=== PATIENT | male | born 1940 | race Caucasian/White ===

== ENCOUNTER 2019-03-14 23:52 | Inpatient (IN) ==
[2019-03-15] MEDS ORDERED: ASPIRIN PO ONE (00:01)
[2019-03-15] MEDS ORDERED: ASPIRIN PR ONE (00:01)
[2019-03-15 00:28] LABS: INR 0.96; PROTIME 13.3 Seconds (11.0-16.0)
[2019-03-15 00:29] LABS: BASO# 0.04 X1000 (0.0-0.2); BASO% 0.6 % (0.0-0.8); EOS# 0.08 X1000 (0.0-0.7); EOS% 1.3 % (0.0-10.0); HEMATOCRIT 30.8 % (42.0-52.0); HEMOGLOBIN 10.4 g/dL (14.0-18.0); IMM GRAN# 0.26 X1000 (0.0-0.04); IMM GRAN% 4.1 % (0.0-0.5); LYMPH# 2.29 X1000 (1.2-3.4); LYMPH% 36.1 % (20.5-51.1); MCH 34.2 PG (27-31); MCHC 33.8 g/dL (33-37); MCV 101.3 FL (81-99); MONO# 0.69 X1000 (0.11-0.59); MONO% 10.9 % (1.7-9.3); MPV 9.6 FL (7.4-10.4); NEUT# 2.98 X1000 (1.4-6.5); PLT 192 X1000 (130-400); PTT 26.9 Seconds (22.3-41.8); RBC 3.04 XMIL (4.7-6.1); WBC 6.34 X1000 (4.8-10.8)
[2019-03-15 00:38] LABS: CALCIUM 8.6 mg/dL (8.8-10.2); CREATININE 2.2 mg/dL (0.7-1.2); POTASSIUM 4.8 mmol/L (3.5-5.1); TOTAL BILIRUBIN 0.2 mg/dL (0.20-1.00)
[2019-03-15] MEDS ORDERED: MORPHINE IV ONE (02:42)
--- NOTE | 2019-03-15 03:35 | PROVIDER DOCUMENTATION ---
This chart was entered by Carlita Valdez Scribe, acting as scribe for Pasha Maldonado MD. HPI-Chest Pain - General Chief Complaint: Chest Pain Stated Complaint: CHEST PAIN Time Seen by Provider: 03/15/19 00:10 Source: patient Allergies/Adverse Reactions: Patient Allergies Allergy/AdvReac Type Severity Reaction Status Date / Time No Known Allergies Allergy Verified 03/14/19 23:59 Home Medications: Home Medication List Medication Instructions Recorded Confirmed Last Taken Type Fluticasone/Salmeterol [Advair 1 each IH BID #1 disk.w.dev 12/13/16 01/14/19 01/13/19 21:00 Rx 250-50 Diskus] Glimepiride 1 mg PO DAILY #30 tablet 12/13/16 01/14/19 01/13/19 08:00 Rx Cholecalciferol (Vit D3) [Vitamin 1,000 units PO DAILY 09/01/18 01/14/19 08:00 History D3] Finasteride 5 mg PO DAILY 09/01/18 01/14/19 01/14/19 08:00 History Tamsulosin HCl 0.4 mg PO BID 09/01/18 01/14/19 01/14/19 08:00 History Ipratropium/Albuterol Sulfate 1 puff IH 4XDAY 11/27/18 01/14/19 01/13/19 21:00 History [Combivent Respimat 20-100 Mcg] Sodium Bicarbonate 650 mg PO TID 11/27/18 01/14/19 01/13/19 21:00 History Allopurinol 100 mg PO DAILY 12/25/18 01/14/19 01/13/19 08:00 History Docusate Sodium [Stool Softener] 100 mg PO PRN PRN 01/12/19 01/14/19 01/13/19 08:00 History Folic Acid/Vit B Complex and C 400 mcg PO DAILY 01/12/19 01/14/19 01/13/19 08:00 History [Super B Complex Tablet] Metoclopramide [Reglan] 10 mg PO PRN PRN 01/12/19 01/12/19 Unknown History Multivit-Min/FA/Lycopen/Lutein 1 each PO DAILY 01/12/19 01/14/19 01/13/19 08:00 History [Centrum Silver Tablet] Ondansetron [Zofran] 4 mg PO PRN PRN 01/12/19 01/12/19 Unknown History Promethazine [Phenergan] 25 mg PO PRN PRN 01/12/19 01/12/19 Unknown History Zinc Sulfate 220 mg PO BID 01/12/19 01/14/19 01/13/19 21:00 History [place]/Na Phos/Meth Blue/Hyos 1 each PO Q6HR PRN #15 tablet 01/14/19 Unknown Rx [Urogesic-Blue] - History of Present Illness-CP Nature of Presenting Problem: pt is a 78 yr old male presenting with chest tightness and shortness of breath onset 2299, pt currently treated for lung CA, hx of collapsed lung. pt reports diaphoresis, no nausea or vomiting. Location: reports: central Chest Pain Radiation: reports: no radiation Quality of Pain: reports: tightness Severity in ED: severe Onset/Duration: abrupt (2329) Timing: still present Context/Activities at Onset: reports: rest Modifying Factors: improves with: nothing Associated Symptoms: reports: diaphoresis, shortness of breath. denies: nausea Nitro Today/Relief: 0.4 mg x 1, provided by EMS, no relief Aspirin Treatment Today: 81 mg x 4, provided by EMS Similar Symptoms Previously?: No Recently Seen Here or By Another Healthcare Provider: Yes (currently followed by Dr Mcnamara) Review of Systems - Adult - REVIEW OF SYSTEMS - ADULT Constitutional: denies: fever, fatique Eyes: denies: blurred vision, double vision Ears, Nose, Mouth & Throat: denies: ear pain, sinus problem, throat pain Cardiovascular: reports: chest pain. denies: palpitations, syncope Respiratory: reports: shortness of breath. denies: cough Gastrointestinal: denies: nausea, vomiting Genitourinary: reports: no symptoms reported Musculoskeletal: denies: back pain, neck pain Integumentary: reports: no symptoms reported Neurological: denies: dizziness/vertigo, headache/migraines Psychiatric: reports: no symptoms reported Endocrine: reports: excessive sweating Hematologic/Lymphatic: reports: no symptoms reported Allergic/Immunologic: reports: no symptoms reported All Other Systems: Reviewed and Negative Past History - Adult - PAST MEDICAL HISTORY-ADULT Review of Records: reports: Old Records Reviewed, Nursing Assessment Review, Medications Reviewed, Social history reviewed & non-contributory. Major Childhood Illnesses: reports: denies history Cardiovascular: reports: HTN, other (bypass) Respiratory: reports: COPD, cancer (right lung) Gastrointestinal: reports: denies history Obstetrical/Gynecological: reports: denies history Genitourinary: reports: denies history Musculoskeletal: reports: denies history Neurological: reports: denies history Endocrine/Immune: reports: Diabetes Other Conditions: reports: denies history - PRIOR SURGERIES/PROCEDURES Surgical/Procedure History: reports: CABG, hernia repair - IMMUNIZATION STATUS Childhood Immunizations: See Nurse Assessment Flu Vaccine: See Nurse Assessment - FAMILY HISTORY Family History: reviewed, not pertinent - SOCIAL HISTORY Smoking: denies Substance Use: denies Living Situation: family Physical Exam-General - PHYSICAL EXAM-ADULT Initial Vital Signs Reviewed: Yes - CONSTITUTIONAL General Appearance: alert, mild distress, obese - EYES Eyes: PERRL/EOMI - HEAD, EARS, NOSE, MOUTH & THROAT HENMT: normocephalic/atraumatic, moist mucous membranes - NECK Neck: non-tender, full range of motion, supple, normal inspection - RESPIRATORY Respiratory: chest non-tender, lungs clear, decreased breath sounds (right) - CARDIOVASCULAR Cardiovascular: normal peripheral pulses, tachycardia - GASTROINTESTINAL (ABDOMEN) Abdominal Exam: normal bowel sounds, non tender, soft - LYMPHATIC Lymphatic: no adenopathy - MUSCULOSKELETAL Back Exam: normal inspection Extremity: normal range of motion, non-tender, normal inspection - SKIN Integumentary: normal color, normal turgor, diaphoresis - PSYCHIATRIC Psych/Mental Status: normal mood/affect - HEART Score HEART Score: History: Moderately Suspicious HEART Score: ECG: Non-Specific Repolarization Disturbance/LBBB/PM HEART Score: Age: > or = 65 Years HEART Score: Risk Factors for Atherosclerotic Disease: > or = 3 Risk Factors or History of Atherosclerotic Disease HEART Score: Troponin: < or = Normal Limit Total HEART Score:: 6 Progress - PLAN OF CARE/RESULTS Progress/Plan/Lab Results: Vital Signs - 8 hr 03/14/19 23:54 Temperature 98.2 F Pulse Rate 128 H Respiratory Rate 24 Blood Pressure 118/85 O2 Sat by Pulse Oximetry 85 L Laboratory Results - last 24 hr 03/15/19 03/15/19 03/15/19 00:02 00:02 00:02 WBC 6.34 RBC 3.04 L Hgb 10.4 L Hct 30.8 L MCV 101.3 H MCH 34.2 H MCHC 33.8 RDW Std Deviation 18.0 H Plt Count 192 MPV 9.6 Immature Gran % (Auto) 4.1 H Neut % (Auto) 47.0 Lymph % (Auto) 36.1 [place] % (Auto) 10.9 H Eos % (Auto) 1.3 Baso % (Auto) 0.6 Immature Gran # (Auto) 0.26 H Neut # (Auto) 2.98 Lymph # (Auto) 2.29 [place] # (Auto) 0.69 H Eos # (Auto) 0.08 Baso # (Auto) 0.04 PT INR PTT (Actin FS) Sodium 141 Potassium 4.8 Chloride 106 Carbon Dioxide 21 L Anion Gap 14 BUN 47 H Creatinine 2.2 H Estimated GFR/1.73 m2 29 BUN/Creatinine Ratio 21 Glucose 201 H Calculated Osmolality 299 Calcium 8.6 L Total Bilirubin 0.20 AST 21 ALT 40 Alkaline Phosphatase 197 H Creatine Kinase 47 Troponin T Wsd-T-Kdeuymeymcg Pept 317 Total Protein 7.0 Albumin 4.0 Globulin 3.0 Albumin/Globulin Ratio 1.0 03/15/19 03/15/19 00:02 00:02 WBC RBC Hgb Hct MCV MCH MCHC RDW Std Deviation Plt Count MPV Immature Gran % (Auto) Neut % (Auto) Lymph % (Auto) [place] % (Auto) Eos % (Auto) Baso % (Auto) Immature Gran # (Auto) Neut # (Auto) Lymph # (Auto) [place] # (Auto) Eos # (Auto) Baso # (Auto) PT 13.3 INR 0.96 PTT (Actin FS) 26.9 Sodium Potassium Chloride Carbon Dioxide Anion Gap BUN Creatinine Estimated GFR/1.73 m2 BUN/Creatinine Ratio Glucose Calculated Osmolality Calcium Total Bilirubin AST ALT Alkaline Phosphatase Creatine Kinase Troponin T < 0.010 Qpm-S-Judkhadlpmy Pept Total Protein Albumin Globulin Albumin/Globulin Ratio Orders Category Date Time Status Cardiac Monitoring DIRECTED Care 03/15/19 00:01 Active Oxygen Therapy- ED Nursing DIRECTED Care 03/15/19 00:01 Active Saline Loc NOW Care 03/15/19 00:01 Active CHEST-1 VIEW [RAD] Stat Exams 03/15/19 00:18 Taken CHEST-1 VIEW [RAD] Stat Exams 03/15/19 01:30 Taken CBC WITH ELECTRONIC DIFF [HEME] Stat Lab 03/15/19 00:02 Completed CK PROFILE [SP CHEM] Stat Lab 03/15/19 00:02 Completed COMPREHENSIVE METABOLIC PANEL [CHEM] Stat Lab 03/15/19 00:02 Completed PRO B-NATRIURETIC PEPTIDE Stat Lab 03/15/19 00:02 Completed PROTIME WITH INR [COAG] Stat Lab 03/15/19 00:02 Completed PTT [COAG] Stat Lab 03/15/19 00:02 Completed TROPONIN T Stat Lab 03/15/19 00:02 Completed Aspirin Med 03/15/19 00:01 Discontinued 300 mg KS NOW ONE Aspirin Med 03/15/19 00:01 Discontinued 325 mg PO NOW ONE Morphine Med 03/15/19 02:42 Discontinued 4 mg IV NOW ONE CP/SOB/Palp >45 yrs of Age Stat Oth 03/15/19 00:01 Ordered EKG [EKG] Stat Ther 03/15/19 00:01 Ordered Result Diagrams: 03/15/19 00:02 03/15/19 00:02 - REASSESSMENT Reassessment #1 Time Reassessed: 01:44 (no longer SOB) Status: improving - EKG 1 Time of EKG reading by physician:: 23:57 EKG Read and Signed by:: Pasha Maldonado EKG Interpretation (*Must complete 3 of following elements*): Abnormal (non specific st abnormality) Rate: 128 Rhythm: sinus tachycardia [place]: normal [place] Interval: normal - XRAY 2 XRAY Study: Chest Impression: Abnormal (pneumothorax resolved), See EMR Report - CONSULTS/PCP/HOSPITALIST Notification #1 *Consult/PCP/Hospitalist*: [place] Time Discussed: 03:18 Consult Disposition: Admit Departure - Departure Date of Disposition Decision: 03/15/19 Time of Disposition Decision: 00:30 DIAGNOSIS: Pneumothorax, right Lung cancer Qualifiers: Laterality: unspecified laterality Lung location: unspecified part of lung Qualified Code(s): C34.90 - Malignant neoplasm of unspecified part of unspecified bronchus or lung Disposition: ADMITTED INPATIENT 09 Certified Medical Emergency: Emergent Condition: Good Referrals and Follow-Ups: None,PCP [Primary Care Provider] - - Critical Care Note This patient required my direct & personal management of CC.: No Attestation - Physician/ THAI Attestation Patient care was provided by Advanced Practice Provider:: No The physician spent face to face time with patient:: Yes Advanced Practice Provider documentation review:: Supervising physician onsite and consulted in the evaluation and care of this patient. The physician did have a face to face encounter with the patient. This chart was documented by the indicated scribe, (Carlita Valdez, Rambo) and accurately reflects the services I performed and decisions made by me, Pasha Maldonado MD, as attested by the provider's signature.
[2019-03-15] MEDS ORDERED: NS 1,000 ML IV ONE (06:16)
[2019-03-15] MEDS ORDERED: ZOFRAN IV PRN (06:16)
--- NOTE | 2019-03-15 06:41 | Diag Imaging Result Doc PS360 ---
EXAM: CHEST-1 VIEW HISTORY: cp TECHNIQUE: Chest single view COMPARISON: 12/26/2018 and a follow-up film at 1:40 AM FINDINGS: There is a large right-sided pneumothorax. There is partial collapse of the right lung. Sternal wires are present and there is a left-sided pacemaker. No cardiomegaly. No pleural effusions. There are increased interstitial markings believed to be fibrosis. No change in the right jugular portacatheter. IMPRESSION: Right-sided pneumothorax. This was noted and a right-sided chest tube was placed on the follow-up film at 1:40 AM. Electronically signed by Gallieo Jackson 03/15/2019 6:39 AM
--- NOTE | 2019-03-15 06:44 | EKG Report ---
Test Performed on : 03/14/2019 11:57:49 PM Test Reason : CP Blood Pressure : / mmHG Vent. Rate : 128 BPM Atrial Rate : 128 BPM P-R Int : 144 ms QRS Dur : 086 ms QT Int : 312 ms P-R-T Axes : 086 -04 031 degrees QTc Int : 455 ms Sinus tachycardia. Nonspecific ST abnormality Abnormal ECG When compared with ECG of 03-SEP-2018 07:33, Vent. rate has increased BY 69 BPM Criteria for Septal infarct are no longer present Confirmed by Puja DILLON, Jr ([id number]), editorial assistant Flores Olivas ([id number]) on 03/20/2019 1:54:52 PM
--- NOTE | 2019-03-15 07:04 | Diag Imaging Result Doc PS360 ---
EXAM: CHEST-1 VIEW HISTORY: chest tube placement TECHNIQUE: Portable chest single view at 1:40 AM COMPARISON: 12:25 AM FINDINGS: Interval placement of a right-sided chest tube. There is reexpansion of the right lung. There is only a tiny apical pneumothorax seen on the current study. Increased interstitial markings throughout the lungs likely due to fibrosis. Sternal wires and surgical clips and a left-sided pacemaker. No change in the right jugular line. IMPRESSION: Interval placement of a right-sided chest tube with reexpansion of the right lung. Electronically signed by Galileo Jackson 03/15/2019 7:02 AM
[2019-03-15] MEDS: MORPHINE IV PRN ×2 (08:49→20:13)
[2019-03-15] MEDS ORDERED: SODIUM CHLORIDE 0.9% INJ PRN (09:01)
[2019-03-15] MEDS ORDERED: TYLENOL PO PRN (09:01)
[2019-03-15 09:39] LABS: ALLEN TEST YES; BE -3.8 mmoll (-3.0-3.0); BLOOD TYPE ARTERIAL; O2(CT) 12.9 mL/dL (15.0-23.0); PCO2(98.6) 33 mmHg (35-45); PO2(98.6) 129 mmHg (60-100); SAMPLE BLOOD; SAO2 99.3 % (95.0-100.0); THB 9.3 g/dL (11.5-17.4)
[2019-03-15 09:42] LABS: MODALITY CANNULA
[2019-03-15] MEDS: HUMULIN R SUBQ SCH ×3 (12:10→20:13)
[2019-03-15] MEDS: XOPENEX NEB INH SCH ×4 (12:26→23:37)
[2019-03-15] MEDS: ATROVENT NEB INH SCH ×4 (12:26→23:37)
--- NOTE | 2019-03-15 13:28 | GENERAL SURGERY CONSULTATION ---
DATE: 03/15/2019 HISTORY OF PRESENT ILLNESS: This is a 78-year-old gentleman who is undergoing radiation and chemotherapy for a lung carcinoma. He has had a history of spontaneous pneumothorax which prompted his diagnosis. He was treated with a chest tube. He presented which dyspnea, chest pain. Came to the ER, where his chest x-ray showed right-sided pneumothorax. Chest tube was placed by Dr. Maldonado in the emergency department with near complete resolution of the pneumothorax. He is comfortable now on nasal cannula, in no acute distress. MEDICAL HISTORY: 1. Lung cancer. 2. COPD with a history of tobacco use. 3. Chronic kidney disease. 4. Diabetes. 5. Coronary artery disease. SURGICAL HISTORY: He has had a port and a right chest tube placed by Dr. Queen. SOCIAL HISTORY: History of tobacco, no current use. No alcohol. He is here with his and his daughter. FAMILY HISTORY: Reviewed and noncontributory. REVIEW OF SYSTEMS: Ten points negative. PHYSICAL EXAMINATION: Vital signs: Pulse is 75, temperature is 97.8 degrees, blood pressure 135/66, oxygen saturation 100% on 5 L nasal cannula. General: He is alert, eating his lunch, in no acute distress. HEENT: There is no scleral icterus. Neck: No cervical mass. Cardiovascular: Normal rate. Pulmonary: No increased work of breathing. He has a right chest tube to -20 suction, FEV1 or 2 air leak with minimal output. Dressing is clear. Integument: Warm and dry. Psychiatric: Appropriate affect. Neurologic: No gross deficits. Musculoskeletal: No significant atrophy or cachexia. Peripheral vascular: lower extremity edema. DIAGNOSTIC STUDIES: White count 6, hematocrit 30. INR 0.96. I reviewed his ABG. Creatinine is 2.2, glucose 190s to 200s. Troponins are negative. LFTs normal with exception of elevation of his alkaline phosphatase. I have looked at his pre- and post-chest tube chest x-rays. ASSESSMENT AND PLAN: A 78-year-old gentleman with a spontaneous pneumothorax. Suspect this is related to a ruptured bleb. We will continue chest tube management for now and determine resolution of his air leak course over the next couple days. I discussed this plan with the patient and family. cc: Diana Hardy MD [facility]
--- NOTE | 2019-03-15 14:13 | HISTORY AND PHYSICAL ---
PRIMARY CARE PHYSICIAN: I do not think he has a primary care physician. HISTORY OF PRESENT ILLNESS: This is a 78-year-old who is undergoing radiation treatment and chemotherapy for lung cancer. He has a history of spontaneous pneumothorax which he started having some chest tightness and discomfort a couple days ago, and chest tube was placed. Presented with dyspnea and chest pain. X-ray showed right-sided pneumothorax. Chest tube placed by Dr. Maldonado in the emergency department with near complete resolution. He is on nasal cannula. PAST MEDICAL HISTORY: 1. Lung cancer. 2. COPD history of tobacco use. 3. Chronic kidney disease. 4. Diabetes. 5. Coronary artery disease. 6. Apparently, he has had a pneumothorax on a couple occasions before. PAST SURGICAL HISTORY: He had a port. Right chest tube placed by Dr. Queen. SOCIAL HISTORY: History of tobacco. No alcohol. No illicit drugs. FAMILY HISTORY: Denies any history of significant history of cardiac or renal or pulmonary disease. REVIEW OF SYSTEMS: General: No weight gain or loss. No fever or chills. HEENT: Unremarkable. No change in vision or hearing acuity. Neck: No thyroid issues. Lymphatic: No adenopathy that he has appreciated. Respiratory: As above. Short of breath and pressure on his right chest with pneumothorax. Cardiovascular: Regular rhythm and rate without murmur or S3. Abdomen: Soft. Skin: Warm and dry. Chest tube in place. Extremities: No pedal edema. LABORATORIES: White count 6340, hematocrit 30, platelet count 192,000. Chemistry: Sodium 141, potassium 4.8, chloride 106, BUN 47, creatinine 2.2, blood sugars 168 and 192. ASSESSMENT AND PLAN: 1. Spontaneous pneumothorax in the face of lung cancer. Chest tube in place. I suspect this is related to a ruptured bleb. Surgery following. 2. Lung cancer. Undergoing radiation and chemotherapy. 3. Underlying chronic obstructive pulmonary disease. 4. Chronic kidney disease. Creatinine is at 2. 5. Diabetes mellitus, type 2. Continue to follow and pattern sugars, sliding scale. 6. History of coronary artery disease. Aware. CURRENT ORDERS: He is on acetaminophen 650 mg q.6 h. p.r.n., Pulmicort 0.5 mg b.i.d., hydrocodone 5 mg q.4 h. p.r.n. pain, ipratropium bromide 0.5 mg q.4 h., Xopenex 1.25 mg q.4 h., morphine 2 mg IV q.2 h. p.r.n., normal saline 100 mL an hour, aspirin 325 mg a day, Phenergan 12.5 q.6 h. p.r.n. nausea. cc: Trent Scott MD
[2019-03-15] MEDS: PULMICORT INH SCH (19:37)
--- NOTE | 2019-03-15 20:03 | Diag Imaging Result Doc PS360 ---
EXAM: CT THORAX W/O CONTRAST HISTORY: SOB TECHNIQUE: CT chest without contrast COMPARISON: 11/19/2018 FINDINGS: There is severe emphysema. There is also a large right-sided pneumothorax with a right-sided chest tube. No pleural effusions. No cardiomegaly. No thoracic aortic aneurysm. Severe atherosclerosis. Trace right pleural fluid. There is a left-sided pacemaker. Sternal wires are present. Interval decrease in the size of the right upper lobe mass. Scattered granuloma. IMPRESSION: 1.Large right pneumothorax even though there is a right-sided chest tube. There is right lung atelectasis. 2.Severe emphysema 3.Interval decrease in the size of the right upper lobe mass This exam was performed using automated exposure control, adjustment of mA or kV according to patient size, and/or use of iterative reconstruction technique. Electronically signed by Galileo Jackson 03/15/2019 8:00 PM
[2019-03-16] MEDS: XOPENEX NEB INH SCH ×7 (03:38→23:30)
[2019-03-16] MEDS: ATROVENT NEB INH SCH ×7 (03:38→23:43)
--- NOTE | 2019-03-16 04:29 | CONSULTATION ---
DATE OF CONSULTATION: 03/15/2019 REQUESTING PROVIDER: ISABELLE Oconnor. REASON FOR CONSULTATION: Respiratory failure with pneumothorax. HISTORY OF PRESENT ILLNESS: This is a 78-year-old male with a medical history of lung cancer, advanced COPD, liver cirrhosis, diabetes mellitus type 2, hypertension, chronic kidney disease, dyslipidemia, hearing loss, coronary artery disease, sinus arrest and asystole. He presented to the ER last night with chest tightness, diaphoresis, and shortness of breath. Initial workup in the ER revealed a large right-sided spontaneous pneumothorax. He then underwent a right- sided chest tube placement by Dr. Maldonado. He has been admitted to the medical floor for further evaluation and treatment. The patient did have a right-sided pneumothorax on August 31, 2018. At the time of my examination, patient is resting in bed with no acute distress noted. He is breathing through a nasal cannula at 3 L. His and his daughter are at the bedside. Per patient's family, patient did complain of some chest tightness and discomfort for a couple days. PAST MEDICAL/SURGICAL HISTORY: 1. Lung cancer status post radiation and chest chemotherapy, followed by Dr. Mcnamara. 2. Advanced COPD with severe bullous emphysema identified on CT scan on August 31, 2018. 3. Liver cirrhosis. 4. Diabetes mellitus type 2. 5. Hypertension. 6. Chronic kidney disease stage 3. 7. Dyslipidemia. 8. Hearing loss. 9. Coronary artery disease status post bypass grafting in 1997. 10. 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 11. Hernia repair. 12. Mastectomy. 13. Vein harvesting from the right leg. SOCIAL HISTORY: Patient has an extended history of tobacco use. He smoked up to 2 packs per day from the age of 10 to the age of 76. He has no history of alcohol or illicit drug use. FAMILY HISTORY: Noncontributory. ALLERGIES: No known drug allergies. REVIEW OF SYSTEMS: Difficult to be obtained. PHYSICAL EXAMINATION: Vital Signs: Temperature 97.8 degrees, blood pressure 135/66, pulse 75, respiratory rate 17, oxygen saturation 100% on nasal cannula at 3 L. General: The patient is resting comfortably, in no acute distress. Patient's and daughter are at the bedside. HEENT: Atraumatic. Trachea midline. Mucosa pink and moist. Respiratory: Even and unlabored. Auscultation reveals markedly diminished breathing sounds bilaterally with right side worse than left side and prolonged expiratory phase. Cardiovascular: Regular rate and rhythm. Gastrointestinal: Bowel sounds normoactive in all 4 quadrants. Soft, nontender, nondistended. Extremities: No pedal edema. No cyanosis. No clubbing. Neurologic: Alert and oriented x3. Hearing loss but the patient still can communicate with his family verbally with no difficulty. LAB DATA: White blood cells 6.34, hemoglobin 10.4, hematocrit 30.8, platelet 192,000. Sodium 141, potassium 4.8, chloride 106, carbon dioxide 21, BUN 47, creatinine 2.2, glucose 201. ABG, pH 7.40, pCO2 33, PO2 129, HC03 22.0, base excess -3.8, and oxyhemoglobin 97.0. IMAGING DATA: Chest x-ray revealed interval placement of a right-sided chest tube with re- expansion of the right lung. ASSESSMENT: This is a 78-year-old male with a medical history of lung cancer, advanced chronic obstructive pulmonary disease, liver cirrhosis, diabetes mellitus type 2, hypertension, chronic kidney disease, dyslipidemia, hearing loss, coronary artery disease, sinus arrest, and asystole. He has been admitted to the medical floor with a large right-sided spontaneous pneumothorax. 1. Large right-sided spontaneous pneumothorax status post right-sided chest tube placement by Dr. Maldonado this morning. 2. Acute hypoxemic respiratory failure secondary to spontaneous pneumothorax. The patient is clinically improving. He currently tolerate a nasal cannula at 3 L. He did require a non-rebreather with FiO2 100% and nasal cannula at 6 L at an earlier time. 3. Lung cancer status post radiation and chemotherapy by Dr. Mcnamara. 4. Advanced chronic obstructive pulmonary disease with severe bullous emphysema. PLAN: 1. Continue supplemental oxygen. 2. Last chest CT on August 31, 2018. Will repeat chest CT. 3. Continue inhaled corticosteroid Pulmicort and bronchodilators. 4. Follow up with chest x-ray. 5. Further recommendations pending hospital course. Thank you for the courtesy of this consult. Dictated by ISABELLE Grewal for Arleth Infante MD cc: ISABELLE Grewal MD [facility]
[2019-03-16] MEDS: HUMULIN R SUBQ SCH ×4 (06:12→21:37)
--- NOTE | 2019-03-16 06:36 | Diag Imaging Result Doc PS360 ---
EXAM: CHEST-1 VIEW HISTORY: SOB TECHNIQUE: Portable chest single view COMPARISON: 03/15/2019 FINDINGS: There is severe emphysema. There is a right apical pneumothorax and there is a right-sided chest tube. These findings are unchanged. No cardiomegaly. There are sternal wires and surgical clips. No change in the right-sided portacatheter on the left pacemaker. There are increased interstitial markings throughout both lungs. IMPRESSION: Stable chest. Electronically signed by Galileo Jackson 03/16/2019 6:34 AM
--- NOTE | 2019-03-16 07:53 | EKG Report ---
Test Performed on : 03/16/2019 07:29:45 AM Test Reason : chest pain Blood Pressure : / mmHG Vent. Rate : 071 BPM Atrial Rate : 071 BPM P-R Int : 178 ms QRS Dur : 096 ms QT Int : 414 ms P-R-T Axes : 067 -09 013 degrees QTc Int : 449 ms Normal sinus rhythm. T wave abnormality, consider anterior ischemia Abnormal ECG When compared with ECG of 15-MAR-2019 12:36, (Unconfirmed) Criteria for Septal infarct are no longer present Criteria for Lateral infarct are no longer present Nonspecific T wave abnormality no longer evident in Lateral leads Confirmed by Kasia DILLON, Corbin ([id number]) on 03/16/2019 9:21:16 AM
[2019-03-16] MEDS: PULMICORT INH SCH ×2 (07:59→19:30)
--- NOTE | 2019-03-16 08:07 | EKG Report ---
Test Performed on : 03/15/2019 12:36:58 PM Test Reason : reevaluate heart rythm Blood Pressure : / mmHG Vent. Rate : 076 BPM Atrial Rate : 076 BPM P-R Int : 208 ms QRS Dur : 094 ms QT Int : 408 ms P-R-T Axes : 000 -26 028 degrees QTc Int : 459 ms Normal sinus rhythm. Septal infarct , age undetermined Lateral infarct , age undetermined ST & T wave abnormality, consider anterior ischemia Abnormal ECG When compared with ECG of 14-MAR-2019 23:57, (Unconfirmed) Significant changes have occurred Confirmed by Kasia DILLON, Corbin ([id number]) on 03/16/2019 9:18:57 AM
[2019-03-16 08:16] LABS: BASO# 0.02 X1000 (0.0-0.2); BASO% 0.4 % (0.0-0.8); EOS# 0.06 X1000 (0.0-0.7); EOS% 1.2 % (0.0-10.0); HEMATOCRIT 27.4 % (42.0-52.0); HEMOGLOBIN 9.1 g/dL (14.0-18.0); IMM GRAN# 0.07 X1000 (0.0-0.04); IMM GRAN% 1.4 % (0.0-0.5); LYMPH% 17.8 % (20.5-51.1); MCH 33.8 PG (27-31); MCHC 33.2 g/dL (33-37); MCV 101.9 FL (81-99); MONO# 0.43 X1000 (0.11-0.59); MONO% 8.5 % (1.7-9.3); MPV 9.9 FL (7.4-10.4); NEUT# 3.58 X1000 (1.4-6.5); NEUT% 70.7 % (42.2-75.2); PLT 171 X1000 (130-400); RBC 2.69 XMIL (4.7-6.1); WBC 5.06 X1000 (4.8-10.8)
[2019-03-16 08:18] LABS: INR 0.99; PROTIME 13.9 Seconds (11.0-16.0)
[2019-03-16 08:19] LABS: PTT 28.4 Seconds (22.3-41.8)
[2019-03-16 08:24] LABS: ALB/GLOB RATIO 1.1; ALBUMIN 3.3 g/dL (3.5-5.0); CALCIUM 8.9 mg/dL (8.8-10.2); CREATININE 2.1 mg/dL (0.7-1.2); MAGNESIUM 1.8 mg/dL (1.5-2.7); POTASSIUM 5.2 mmol/L (3.5-5.1); TOTAL BILIRUBIN 0.27 mg/dL (0.20-1.00); TOTAL PROTEIN 6.2 g/dL (6.3-8.3)
[2019-03-16 08:31] LABS: HEMOGLOBIN A1C 6.1 % (4.8-6.0)
[2019-03-16 09:03] LABS: FREE T4 0.86 ng/dL (0.93-1.70)
--- NOTE | 2019-03-16 09:47 | GENERAL SURGERY PROGRESS NOTE ---
DATE: 03/16/2019 SUBJECTIVE: He has some pleuritic pain on the side but no shortness of breath. He is on nasal cannula. No fevers. No tachycardia. OBJECTIVE: On exam, he has a persistent FEV1 or 2 air leak. It is to -20 suction. White count is normal, hematocrit is 27. I reviewed his x-ray from this morning that shows emphysematous changes, a very small apical pneumothorax but overall good expansion of the lung. ASSESSMENT AND PLAN: This is a 78-year-old gentleman with a spontaneous pneumothorax that has been a recurrent issue for him. He has an air leak. We will keep his tube to suction, follow the chest x-rays, and aggressive pulmonary toileting. cc: Diana Hardy MD
--- NOTE | 2019-03-16 10:35 | HEMO/ONC CONSULTATION ---
DATE: 03/16/2019 CHIEF COMPLAINT: We were consulted for the management of the patient's lung cancer. HISTORY OF PRESENT ILLNESS: Mr. Rashid presented to the emergency department on 03/15/2019, complaining of chest pain and some shortness of breath. The patient says it continued to get worse. The patient said he also had gotten pretty diaphoretic. No nausea, no vomiting. The patient, while in the emergency department, was found to have another pneumothorax. While in the emergency department, the patient had chest tube placed at that time, and shortness of breath improved. Mr. Rashid is well known in my clinic, where he follows up for his limited stage small-cell lung cancer. CT of the chest revealed right upper lobe mass and mediastinal lymphadenopathy. CT of the head was negative. PET/CT revealed a large right upper lobe mass. No evidence of metastatic disease outside the chest. Biopsy did reveal small-cell lung cancer. The patient was started on carboplatin and etoposide on 01/01/2019. The patient last received carboplatin and etoposide on 02/18/2019. The patient is also getting concurrent radiation, where he has approximately 2 weeks left of it. PAST MEDICAL HISTORY: Lung cancer, COPD, history of tobacco use, chronic kidney disease, diabetes, coronary artery disease, and spontaneous pneumothorax. PAST SURGICAL HISTORY: Port, chest tube placement. SOCIAL HISTORY: History of tobacco abuse, has quit now. No alcohol or illicit drug use. FAMILY HISTORY: Noncontributory. HOME MEDICATIONS: Allopurinol, docusate sodium, finasteride, fluticasone/salmeterol, Combivent Respimat, Reglan, Centrum Silver, Zofran, Phenergan, Flomax, zinc sulfate, vitamin D3, glimepiride, Carafate, and vitamin B complex. REVIEW OF SYSTEMS: Negative unless noted in HPI. PHYSICAL EXAMINATION: Vital Signs: Temperature 97.8 degrees, heart rate 72, respiratory rate 16, blood pressure 130/55, satting 100% on nasal cannula. General: The patient is awake, lying in bed, no acute distress noted. HEENT: Anicteric. Mucous membranes seem dry. Neck: Supple. Trachea midline. No JVD. Chest: Bilateral breath sounds. Diminished bilaterally. Chest tube in place. Cardiovascular: S1, S2. Regular rate and rhythm. Abdomen: Soft, nontender. Bowel sounds present in all 4 quadrants. Skin: Warm, dry, and intact. No petechiae, no clubbing, no rashes, no cyanosis. Neurologic: Alert and oriented x3. No focal deficits noted. LABORATORY DATA: White cell count 5.06, hemoglobin 9.1, hematocrit 27.4, platelets are 171. RADIOLOGY RESULTS: CT of the chest showed a large right pneumothorax with right-sided chest tube, severe emphysema, and an interval decrease in the size of the right upper lobe mass. Chest x-ray this morning shows stable chest. ASSESSMENT AND PLAN: 1. Limited stage small-cell lung cancer. Treatment is on hold at this time until the patient gets better. Once the patient is back to baseline and discharged from the hospital, we can hopefully resume treatment at that time. Chemo last cycle was given on 02/18/2019. Will just continue to monitor at this time. 2. Pneumothorax. Chest tube is in place. Continue management per primary medical team and Surgery. 3. Chronic obstructive pulmonary disease. Aware. Continue management per primary medical team. 4. Chronic kidney disease. Creatinine is 2.2, close to baseline. Continue recommendations per primary medical team. 5. Diabetes mellitus type 2. Continue management per medical team. 6. Deep venous thrombosis prophylaxis. Continue to have the patient get up out of bed as much as possible. Sequential compression devices as needed. 7. Supportive care. Continue protein shakes 3 times a day. Continue to have the patient do exercise as instructed. Dictated by ISABELLE Horn for Lester Mcnamara MD Patient seen and examined. As above. Patient with limited stage small cell lung cancer. He has completed 3 cycles of chemotherapy. He had a PET scan end of last week and results are pending. He is currently receiving concurrent radiation and has 12 more treatments to go. He was admitted to the hospital with spontaneous pneumothorax. He has a chest tube in place. Shortness of breath is improving. Continue current management. Start chemotherapy and radiation once better from this. Lester Mcnamara M.D. cc: ISABELLE Horn MD [facility]
[2019-03-16] MEDS: NORCO-5 PO PRN ×2 (11:39→21:35)
--- NOTE | 2019-03-16 13:49 | PROGRESS NOTE ---
DATE: 03/16/2019 SUBJECTIVE: Mr. Rashid is feeling much better. Right-sided chest pain is better. Chest tube in place. Comfortable. He has been eating okay. Feels like his bowels are okay. OBJECTIVE: Temp 98.1 degrees, pulse 72, respirations 16, blood pressure 142/69.HEENT: Pupils are equal and round. NECK: No distended neck veins. Lungs: Are clear in all lung [place]. Cardiovascular: Regular rhythm and rate without murmur or S3. Abdomen: Is soft. Skin: Is warm and dry. Urine output: Is 1200 mL. ASSESSMENT AND PLAN: 1. Metastatic small cell lung cancer. Treatment on hold until patient gets better. When he is back to baseline. Discharge from hospital. Resume treatment at that time. Chemo last cycle was on 02/18/2019. 2. Pneumothorax. Spontaneous pneumothorax probably from a bleb and chest tube in place seems to be doing better. 3. Chronic obstructive pulmonary disease, not having trouble with air exchange or gas exchange at this time. 4. Chronic kidney disease. Creatinine baseline is about 2.2. 5. Diabetes mellitus type 2. 6. Deep venous thrombosis prophylaxis and GI regimen continue. REVIEW OF ORDERS: I do not see any change at this time. cc: Trent Soctt MD
[2019-03-17] MEDS: XOPENEX NEB INH SCH ×6 (02:41→23:30)
[2019-03-17] MEDS: ATROVENT NEB INH SCH ×6 (02:43→23:30)
--- NOTE | 2019-03-17 06:31 | Diag Imaging Result Doc PS360 ---
CHEST-1 VIEW - 03/17/2019 INDICATION: SOB COMPARISON: 03/16/2019 FINDINGS: Stable right chest tube in good position. There has been increase in the trace right pneumothorax measuring about 10%. Stable CABG changes. Stable right chest port and left pacemaker. Heart size remains top normal. Stable diffuse bilateral interstitial infiltrates. IMPRESSION: Increase in the trace right pneumothorax which now measures about 10%. Electronically signed by Mark Ireland 03/17/2019 6:29 AM
[2019-03-17] MEDS: HUMULIN R SUBQ SCH ×4 (06:34→23:12)
[2019-03-17] MEDS: NORCO-5 PO PRN ×2 (06:35→23:06)
[2019-03-17 06:48] LABS: BASO# 0.02 X1000 (0.0-0.2); BASO% 0.4 % (0.0-0.8); EOS# 0.08 X1000 (0.0-0.7); EOS% 1.4 % (0.0-10.0); HEMATOCRIT 27.4 % (42.0-52.0); IMM GRAN# 0.09 X1000 (0.0-0.04); IMM GRAN% 1.6 % (0.0-0.5); LYMPH# 0.89 X1000 (1.2-3.4); LYMPH% 16.1 % (20.5-51.1); MCH 33.7 PG (27-31); MCHC 32.8 g/dL (33-37); MCV 102.6 FL (81-99); MONO# 0.72 X1000 (0.11-0.59); MPV 9.4 FL (7.4-10.4); NEUT# 3.72 X1000 (1.4-6.5); NEUT% 67.5 % (42.2-75.2); PLT 189 X1000 (130-400); RBC 2.67 XMIL (4.7-6.1); RDW 17.8 % (11.5-14.5); WBC 5.52 X1000 (4.8-10.8)
[2019-03-17 07:24] LABS: ALB/GLOB RATIO 1.4; ALBUMIN 3.4 g/dL (3.5-5.0); CALCIUM 9.1 mg/dL (8.8-10.2); CREATININE 2.1 mg/dL (0.7-1.2); POTASSIUM 5.8 mmol/L (3.5-5.1); TOTAL BILIRUBIN 0.23 mg/dL (0.20-1.00); TOTAL PROTEIN 5.9 g/dL (6.3-8.3)
[2019-03-17] MEDS: PULMICORT INH SCH ×2 (07:38→19:30)
--- NOTE | 2019-03-17 10:00 | HEMO/ONC PROGRESS NOTE ---
DATE: 03/17/2019 SUBJECTIVE: The patient has continued to slowly improve and get better. No new complaints at this time. OBJECTIVE: VITAL SIGNS: Temperature 98.4 degrees, heart rate 85, respiratory 18, O2 sat 99% nasal cannula. GENERAL: The patient is awake, lying in bed, no acute distress noted. HEENT: Anicteric. Pupils PERRLA. Mucous membranes moist. CARDIOVASCULAR: S1, S2, regular rate and rhythm. CHEST: Positive breath sounds diminished bilaterally. ABDOMEN: Soft, nontender. Bowel sounds present all 4 quadrants. NEUROLOGICAL: Alert and oriented x3. No focal deficits noted. LABORATORY DATA: White blood cell count 5.5, hemoglobin 9.0, hematocrit 27.4, platelets 189,000. Potassium 5.8. BUN 33, creatinine 2.1. Calcium 9.1. ASSESSMENT AND PLAN: 1. Metastatic small cell lung cancer. Treatment on hold at this time. Once patient gets back to baseline, we will go ahead and discharge him and he can resume his chemotherapy and radiation. Continue to monitor at this time. 2. Pneumothorax. SOB continues to improved. Chest tube in place. Surgery following. 3. COPD. Continue management per primary care team. 4. Chronic kidney disease. Creatinine at baseline of about 2.2. 5. DVT prophylaxis. Continue getting out of bed as much as possible. Continue his DVT device as needed. Continue to monitor. Dictated by ISABELLE Horn for Lester Mcnamara MD Patient seen and examined. He reports that his breathing is better. Continue chest tube management per surgery. Chemotherapy and radiation on hold. Discussed with Dr. Whaley. She will restart radiation once chest tube is out. Lester Mcnamara M.D. [facility]
[2019-03-17] MEDS: FLOMAX PO SCH (10:14)
[2019-03-17] MEDS ORDERED: HUMULIN R IV ONE (11:18)
[2019-03-17] MEDS ORDERED: D50W SYRINGE IV ONE (11:19)
[2019-03-17] MEDS ORDERED: VELTASSA PO ONE (11:23)
[2019-03-17 12:51] LABS: URINE SOURCE CLEAN CATCH
[2019-03-17 13:01] LABS: BILIRUBIN URINE NEGATIVE (NEGATIVE); BLOOD URINE SMALL (NEGATIVE); COLOR YELLOW; GLUCOSE URINE 200 mg/dL (NEGATIVE); KETONE URINE NEGATIVE (NEGATIVE); LEUKOCYTES URINE TRACE (NEGATIVE); NITRITE URINE NEGATIVE (NEGATIVE); PROTEIN URINE NEGATIVE (NEGATIVE); SP GRAVITY URINE 1.006; TURBIDITY URINE CLEAR (CLEAR); UR EPITHELIAL CELLS <10 /HPF (<10); URINE BACTERIA NEGATIVE /HPF; URINE RBC 20-40 /HPF (<10); UROBILINOGEN URINE NORMAL (NORMAL)
[2019-03-17 13:17] LABS: UR CREAT RANDOM 58.1 mg/dL (14-26); UR POTASSIUM 32.1 mmoll
--- NOTE | 2019-03-17 13:46 | GENERAL SURGERY PROGRESS NOTE ---
DATE: 03/17/2019 SUBJECTIVE: He is a little weak. He is sleeping this morning. No fevers, no tachycardia overnight. OBJECTIVE: Oxygen saturation remains about the same on 1 L. I have reviewed his labs and his x- ray. His chest x-ray shows overall improved expansion of the lung, but there is a slight increase in the pneumothorax. They measure at 10%. He has a persistent air leak FEV1. ASSESSMENT AND PLAN: A 78-year-old gentleman with spontaneous pneumothorax. He has had a chest tube. He has an air leak. This is a recurrent issue for him. We will attempt to water seal his tube today. Hopefully this will help the leak resolve. Otherwise, we will continue chest tube until it dies. cc: Diana Hardy MD
[2019-03-17] MEDS ORDERED: SORBITOL PO ONE (15:28)
[2019-03-17] MEDS ORDERED: DULCOLAX PR ONE (15:28)
--- NOTE | 2019-03-17 16:36 | Diag Imaging Result Doc PS360 ---
EXAM: KUB ABDOMEN HISTORY: constipation TECHNIQUE: Abdomen single view COMPARISON: 11/27/2016 FINDINGS: There are air-filled loops of small bowel and colon. Stool is found in the colon. No organomegaly. Moderate degenerative spine changes. No abnormal abdominal calcification. No foreign body. IMPRESSION: Mild constipation. Electronically signed by Galileo Jackson 03/17/2019 4:34 PM
--- NOTE | 2019-03-17 22:47 | PROGRESS NOTE ---
DATE: 03/17/2019 SUBJECTIVE: The patient complains of itching where the tape for his tattoo is located. He also complains of constipation. OBJECTIVE: Vital Signs: Temperature 97.6 degrees, blood pressure 115/80, heart rate 87, respirations 18, O2 saturation 99% on 1 L nasal cannula. General: This is an elderly male lying in bed in no acute distress. Heart: S1, S2 normal. Regular rate and rhythm. Lungs: Equal air entry bilaterally. No crackles. No rales. Abdomen: Positive bowel sounds. Soft, nondistended. Extremities: No edema. No cyanosis. Neurologic: The patient is [id number] but alert and oriented x4. LABORATORY DATA: White blood cell count 5.5, hemoglobin 9, hematocrit 27, platelets 189,000. Sodium 140, potassium 5.8, chloride 110, CO2 19, BUN 33, creatinine 2.1, glucose 125. Abdominal x-ray shows small constipation. ASSESSMENT AND PLAN: 1. Spontaneous right sided pneumothorax status post right-sided chest tube placement. Management as per the general surgeon. 2. Severe emphysema. Aware. 3. Constipation. We will start the patient on laxative therapy. 4. Hyperkalemia. The patient's medications have been reviewed. He does not appear to be anything that would be causing an increase in his potassium. We will check urine studies. In the meantime, we will treat the elevated potassium today and start the patient on Veltassa. 5. Chronic kidney disease stage 3. Stable. 6. Mild metabolic acidosis. We will continue to monitor closely. 7. Metastatic small cell lung cancer. Management as per Dr. Mcnamara. 8. Chronic obstructive pulmonary disease. Continue with bronchodilator therapy and supplemental oxygen. 9. Deep vein thrombosis prophylaxis. Continue with SCDs. cc: Kacie Monterroso MD MTDD
[2019-03-17] MEDS: LACTULOSE PO SCH (23:03)
[2019-03-17] MEDS: MIRALAX PO SCH (23:06)
[2019-03-17] MEDS: COLACE PO SCH (23:11)
[2019-03-17] MEDS ORDERED: CALMOSEPTINE OINTMENT TOP PRN (23:26)
[2019-03-18] MEDS: ZOFRAN IV PRN ×3 (02:58→16:07)
[2019-03-18] MEDS: XOPENEX NEB INH SCH ×7 (03:27→23:17)
[2019-03-18] MEDS: ATROVENT NEB INH SCH ×6 (03:27→23:17)
[2019-03-18] MEDS: PHENERGAN IV PRN ×3 (06:43→22:21)
[2019-03-18] MEDS: HUMULIN R SUBQ SCH ×4 (06:43→22:29)
[2019-03-18] MEDS: NORCO-5 PO PRN (06:48)
--- NOTE | 2019-03-18 06:52 | Diag Imaging Result Doc PS360 ---
CHEST-1 VIEW - 03/18/2019 INDICATION: SOB COMPARISON: 03/17/2019 FINDINGS: Support lines and tubes are stable. The small right pneumothorax has decreased and is now trace in size. Stable advanced COPD. There is been some improvement in the bibasilar infiltrates. Sable cardiomegaly. IMPRESSION: Improvement from prior. Electronically signed by Mark Ireland 03/18/2019 6:49 AM
[2019-03-18 07:30] LABS: HEMATOCRIT 31.6 % (42.0-52.0); HEMOGLOBIN 10.6 g/dL (14.0-18.0); MCHC 33.5 g/dL (33-37); MCV 101.3 FL (81-99); MPV 9.9 FL (7.4-10.4); RBC 3.12 XMIL (4.7-6.1); RDW 17.8 % (11.5-14.5); WBC 7.57 X1000 (4.8-10.8)
[2019-03-18 07:40] LABS: CALCIUM 10.2 mg/dL (8.8-10.2); CREATININE 2.2 mg/dL (0.7-1.2); POTASSIUM 5.9 mmol/L (3.5-5.1)
[2019-03-18] MEDS: PULMICORT INH SCH ×2 (07:41→19:16)
[2019-03-18] MEDS ORDERED: HUMULIN R IV ONE ×2 (07:56→20:00)
[2019-03-18] MEDS ORDERED: CALCIUM GLUCONATE 1 GM in NS 50 ML IV ONE (07:56)
[2019-03-18] MEDS ORDERED: D50W SYRINGE IV ONE ×2 (07:56→20:00)
[2019-03-18] MEDS ORDERED: KAYEXALATE PO ONE (07:57)
[2019-03-18] MEDS ORDERED: SORBITOL PO SCH (09:00)
[2019-03-18] MEDS: NS 1,000 ML IV SCH (09:32)
[2019-03-18] MEDS: COLACE PO SCH ×2 (09:37→22:21)
[2019-03-18] MEDS: FLOMAX PO SCH (09:37)
[2019-03-18] MEDS: LACTULOSE PO SCH ×2 (09:37→22:21)
[2019-03-18] MEDS: MIRALAX PO SCH ×2 (09:40→22:19)
[2019-03-18] MEDS: VELTASSA PO SCH (09:41)
[2019-03-18] MEDS: HYDROCORTISONE 2.5% LOTION TOP SCH ×2 (09:55→22:39)
--- NOTE | 2019-03-18 11:06 | HEMO/ONC PROGRESS NOTE ---
DATE: 03/18/2019 SUBJECTIVE: Patient says he continues to feel better. Shortness of breath continues to improve. The patient has no new complaints at this time. OBJECTIVE: Vital Signs: Temperature of 98.0 degrees, heart rate 86, respiratory rate 18, blood pressure 136/68, saturating 100% on nasal cannula. General: Patient is awake, lying in bed. No acute distress noted. HEENT: Anicteric. Pupils PERRL. Mucous membranes appear to be moist. Cardiovascular: S1, S2. Regular rate and rhythm. Chest: Bilateral breath sounds bilaterally. Abdomen: Soft, nontender. Bowel sounds present in all 4 quadrants. Neurologic: Alert and oriented x3. No focal deficits noted. Laboratory Data: White count 7.57, hemoglobin 10.6, hematocrit of 31.6, platelets are 260,000. Potassium 5.9, BUN 32, creatinine 2.2, calcium 10.2. ASSESSMENT AND PLAN: 1. Metastatic small cell lung cancer: Treatment has been on hold. Once chest tubes are removed, Dr. Whaley will resume radiation. Patient hopefully will be able to resume chemotherapy once they discharge him back to baseline as well. We will continue to monitor closely. 2. Pneumothorax: Shortness of breath continues to improve. Continue management per and surgery. 3. Chronic obstructive pulmonary disease: Continue current management per primary medical team. 4. Chronic kidney disease: Creatinine at baseline. Continue to monitor. 5. Hyperkalemia. Today potassium is up to 5.9. Continue management per primary medical team. 6. Deep venous thrombosis prophylaxis: We will continue to have the patient get out of bed as much as possible. Continue sequential compression devices as needed. Continue to monitor closely. 7. Persistent Nausea: GI consulted. Dictated by ISABELLE Horn for Lester Mcnamara MD Patient seen and examined. Seems to be doing better from his pneumothorax standpoint. Dr. Hardy following. Patient complains of nausea and decreased by mouth intake. He is on Zofran and we will give it this [id number]. Also has constipation for the last 4 days. Had MiraLAX yesterday. Getting enema today. Dr. Fine seeing patient. Lester Mcnamara M.D. [facility]
--- NOTE | 2019-03-18 15:43 | PROGRESS NOTE ---
DATE: 03/18/2019 SUBJECTIVE: The patient states that he has been unable to keep solids or liquids down since yesterday. He also reports that he had a small bowel movement early this morning. OBJECTIVE: Vital Signs: Temperature 97.7 degrees, blood pressure 126/64, heart rate 95, respirations 17, O2 saturation is 99% on 1 L nasal cannula. General: This is a chronically ill- appearing elderly male, lying in bed in no acute distress. Heart: S1, S2 normal. Regular rate and rhythm. Lungs: Equal air entry bilaterally. No wheezing. No rales. Abdomen: Soft, nontender, nondistended. Positive bowel sounds. Extremities: No edema, no cyanosis. Neurologic: The patient is alert and oriented x4. LABORATORY DATA: White blood cell count 7.5, hemoglobin 10, hematocrit 31, platelets 260,000. Sodium 140, potassium 5.9, chloride 104, CO2 of 25, BUN 32, creatinine 2.2, glucose 161, calcium 10. ASSESSMENT AND PLAN: 1. Spontaneous right sided pneumothorax status post right-sided chest tube placement. The patient appears to be improving slowly. Management as per the general surgeon. 2. Persistent hyperkalemia. The patient's TTKG is 3. This likely represents impaired distal sodium delivery. We will start the patient on normal saline. We will also consult with the cardiopulmonary technologist chief for further recommendations. Will repeat the potassium level this evening. 3. Chronic kidney disease. Stable. 4. Metastatic small cell lung cancer status post chemoradiation. Management as per Dr. Mcnamara. 5. Nausea with vomiting. The patient had a small bowel movement early this morning. We will continue with scheduled laxative therapy. We will also consult with GI since the patient is unable to keep solids or liquids down. Continue on prn zofran. Will add IV protonix. 6. Diabetes mellitus type 2. We will cover the patient with sliding scale insulin. 7. Anemia. Stable. 8. Deep vein thrombosis prophylaxis. Continue with SCDs. cc: Kacie Monterroso MD MTDD
[2019-03-18] MEDS: PROTONIX IV SCH (16:07)
[2019-03-18] MEDS ORDERED: CALCIUM GLUCONATE 1 GM in NS 50 ML IV STA (16:24)
[2019-03-18] MEDS ORDERED: D50W SYRINGE IV STA (16:25)
[2019-03-18] MEDS ORDERED: HUMULIN R IV STA (16:25)
[2019-03-18] MEDS ORDERED: ALBUTEROL 0.5% INH CONC FOR HYPERKALEMIA INH STA (16:25)
--- NOTE | 2019-03-18 16:55 | EKG Report ---
Test Performed on : 03/18/2019 4:46:42 PM Test Reason : hyperkalemia Blood Pressure : / mmHG Vent. Rate : 095 BPM Atrial Rate : 095 BPM P-R Int : 156 ms QRS Dur : 084 ms QT Int : 356 ms P-R-T Axes : 073 -21 -43 degrees QTc Int : 447 ms Normal sinus rhythm. ST & T wave abnormality, consider anterior ischemia Abnormal ECG When compared with ECG of 16-MAR-2019 07:29, Nonspecific T wave abnormality now evident in Lateral leads Confirmed by Tre DILLON, Luis Alcaraz ([id number]) on 03/19/2019 8:46:59 AM
[2019-03-18] MEDS ORDERED: ALBUTEROL 0.5% INH CONC FOR HYPERKALEMIA INH ONE (20:00)
--- NOTE | 2019-03-18 20:19 | GASTROENTEROLOGY CONSULTATION ---
DATE: 03/18/2019 REASON FOR CONSULTATION: nausea, vomiting, odynophagia HPI: Mr. Rashid is a 78M with HTN, COPD, CKD, CAD, NIDDM2, chronic constipation, and right small-cell lung cancer s/p 3 cycles of chemotherapy (started on carboplatin and etoposide on 01/01/2019; last dose 02/18/2019; on hold secondary to leukopenia and thrombocytopenia) undergoing radiation who was admitted with spontaneous PTX s/p chest tube who reports having 2 episodes of NBNB over the last couple of days. The patient reports having nausea over the last couple of weeks with associated dysphagia to solids and odynophagia. He has been eating soft foods including ice cream and soup secondary to symptoms. No hematemesis, abdominal pain, melena, fever, chills, or sweats. He has been using magic mouthwash, which helps his symptoms. No prior EGD. He had a colonoscopy over 5 years ago with colonic polyps. His SOB has improved. REVIEW OF SYSTEMS: 12 point ROS negative unless noted in HPI. PAST MEDICAL HISTORY: Lung cancer, COPD, history of tobacco use, chronic kidney disease, diabetes, coronary artery disease, spontaneous pneumothorax, gout, HTN, BPH PAST SURGICAL HISTORY: Port, chest tube placement. SOCIAL HISTORY: History of tobacco abuse, has quit now. No alcohol or illicit drug use. FAMILY HISTORY: Noncontributory. No GI malignancies HOME MEDICATIONS: Allopurinol, docusate sodium, finasteride, fluticasone/salmeterol, Combivent Respimat, Reglan, Centrum Silver, Zofran, Phenergan, Flomax, zinc sulfate, vitamin D3, glimepiride, Carafate, and vitamin B complex, magic mouthwash ALL: NKDA PE VS: T98.1 HR112 RR17 BP108/59 O2 sat 97% on 1.5L NC GEN: awake, alert, NAD HEENT: anicteric, MMM, EOMI NECK: supple, no jvd PULM: CTAB, no wheezing, right chest tube in place CV: tachycardic, regular ABD: soft NT/ND, NABS EXT: no cce NEURO: nonfocal LABS: Na 140 K 5.0 Cl 104 CO2 25 BUN 32 Cr 2.2 WBC 7.5 Hgb 10.6 Plts 260 lipase 10 ALP 168 CHEST-1 VIEW - 03/18/2019 INDICATION: SOB COMPARISON: 03/17/2019 FINDINGS: Support lines and tubes are stable. The small right pneumothorax has decreased and is now trace in size. Stable advanced COPD. There is been some improvement in the bibasilar infiltrates. Sable cardiomegaly. IMPRESSION: Improvement from prior. RADIOLOGY RESULTS: CT of the chest showed a large right pneumothorax with right-sided chest tube, severe emphysema, and an interval decrease in the size of the right upper lobe mass. Chest x-ray this morning shows stable chest. A/P: Mr. Rashid is a 78M with HTN, COPD, CKD, CAD, NIDDM2, chronic constipation, and right small-cell lung cancer s/p 3 cycles of chemotherapy (started on carboplatin and etoposide on 01/01/2019; last dose 02/18/2019; on hold secondary to leukopenia and thrombocytopenia) undergoing radiation who was admitted with spontaneous PTX s/p chest tube who presents to the GI service with nausea, vomiting, odynophagia, and dysphagia in the setting of recent chemoradiation concerning for radiation vs infectious vs reflux esophagitis. #N/V: continue antiemetics prn, PPI IV BID, carafate liquid QID - plan for diagnostic EGD tomorrow, NPO after MN with Dr. Miller - will obtain esophagus biopsies to rule out HSV/CMV, remigio #Dysphagia/odynophagia: as above #PTX: chest tube in place; significant improvement; minimal O2 requirement; surgery following #Hyperkalemia: improved #COPD: aware #CKD: stable #DM2: on SSI #SCLC: on chemoradiation as per oncology team #Anemia: stable; no overt GI bleeding; 2/2 to chemo Thank you for this consult will follow with you. Please call with questions MTDD
--- NOTE | 2019-03-18 21:25 | GENERAL SURGERY PROGRESS NOTE ---
DATE: 03/18/2019 SUBJECTIVE: He seems a little more somnolent over the last couple of days. No fevers. No tachycardia. LABORATORY DATA: I reviewed his labs. White count is 7, hematocrit is 31. His potassium is up to 6.0. Creatinine is 2.2. DIAGNOSTIC DATA: Chest x-ray today shows near-complete resolution of his pneumothorax. OBJECTIVE: He does continue to have an air leak on exam. Chest tube is in place. It is to water seal. ASSESSMENT AND PLAN: This is a gentleman with a right chest tube. He has an air leak. Spontaneous pneumothorax, very small residual, improved from previous. We will keep it to water seal. As his air leak resolves, we will remove his tube. cc: Diana Hardy MD
--- NOTE | 2019-03-18 22:05 | PULMONOLOGY PROGRESS NOTE ---
DATE: 03/18/2019 SUBJECTIVE: The patient is awake, alert and conversant. He denies shortness of breath at rest. OBJECTIVE: Vital Signs: Blood pressure 112/64, heart rate 86, respiratory rate 18, oxygen saturation 100% on room air. HEENT: Pupils are equal and reactive. Oropharynx is clear. Neck: Supple. Chest: Reveals good air flow bilaterally. He does have a small air leak noted. Cardiac: S1, S2. Abdomen: Soft. Extremities: Are without edema. LABORATORIES: Chest x-ray reveals chest tube in good position with no significant pneumothorax present. IMPRESSION: A 78-year-old with: 1. Spontaneous pneumothorax. 2. Limited stage small cell carcinoma, getting concurrent chemo radiation. 3. Acute respiratory failure. 4. Chronic kidney disease. RECOMMENDATIONS: 1. Cautious fluid replacement. 2. Continue oxygen for hypoxemic respiratory failure. 3. Continue chest tube to suction given ongoing air leak. cc: Estuardo Barillas MD
[2019-03-19] MEDS: PROTONIX IV SCH ×3 (00:46→15:40)
[2019-03-19] MEDS: NS 1,000 ML IV SCH (01:26)
[2019-03-19] MEDS: CARAFATE LIQUID PO SCH ×4 (01:56→21:01)
[2019-03-19] MEDS: XOPENEX NEB INH SCH ×6 (03:28→23:35)
[2019-03-19] MEDS: ATROVENT NEB INH SCH ×6 (03:28→23:30)
[2019-03-19] MEDS: ZOFRAN IV PRN (03:56)
[2019-03-19] MEDS: HUMULIN R SUBQ SCH ×4 (06:29→21:02)
[2019-03-19] MEDS ORDERED: XYLOCAINE-MPF 2% ONE (06:39)
[2019-03-19] MEDS ORDERED: ROBINUL ONE (06:39)
[2019-03-19] MEDS ORDERED: DIPRIVAN 1% ONE (06:40)
[2019-03-19] MEDS ORDERED: FENTANYL ONE (06:40)
[2019-03-19] MEDS ORDERED: ZOFRAN ONE (06:42)
--- NOTE | 2019-03-19 07:03 | Diag Imaging Result Doc PS360 ---
EXAM: CHEST-1 VIEW 03/19/2019 HISTORY: SOB TECHNIQUE: AP portable at 0605 COMMENT: There is a chest tube on the right. There is a small residual apical pneumothorax. There is a large bulla in the right apex and COPD is otherwise present with another somewhat smaller bulla in the lateral left upper lobe. There is increased interstitial opacity in both lower lung [place] in comparison with the previous study of 03/18/2019 particularly in the right lower lobe. IMPRESSION: Worsening pulmonary edema and/or pneumonia superimposed on COPD and small right pneumothorax. Electronically signed by James Bland 03/19/2019 7:01 AM
[2019-03-19] MEDS: PULMICORT INH SCH ×2 (07:26→19:45)
[2019-03-19 07:45] LABS: HEMATOCRIT 27.7 % (42.0-52.0); HEMOGLOBIN 8.9 g/dL (14.0-18.0); MCH 34.4 PG (27-31); MCHC 32.1 g/dL (33-37); MCV 106.9 FL (81-99); MPV 9.5 FL (7.4-10.4); RBC 2.59 XMIL (4.7-6.1); RDW 18.3 % (11.5-14.5); WBC 6.23 X1000 (4.8-10.8)
[2019-03-19 07:58] LABS: ALBUMIN 3.3 g/dL (3.5-5.0); CALCIUM 8.7 mg/dL (8.8-10.2); CREATININE 2.4 mg/dL (0.7-1.2); PHOSPHORUS 3.7 mg/dL (2.7-4.5)
[2019-03-19] MEDS ORDERED: NEO-SYNEPHRINE ONE (08:30)
[2019-03-19] MEDS ORDERED: SODIUM CHLORIDE 0.9% 10 ML ONE (08:30)
[2019-03-19] MEDS ORDERED: MBX SOLUTION MT PRN (09:15)
--- NOTE | 2019-03-19 10:13 | NEPHROLOGY CONSULTATION ---
DATE: 03/19/2019 REASON FOR CONSULTATION: Hyperkalemia. HISTORY OF PRESENT ILLNESS: Mr. Rashid is a 78-year-old white male who is known to our practice. Baseline creatinine approximately 2.5 and he has been essentially at his baseline for the last 2 years. In that context, he has had intermittent problems with hyperkalemia. He was admitted to the hospital on the 15 of March because of acute shortness of breath associated with a pneumothorax. This happened in the context of radiation therapy for lung cancer. He is also dealing with significant dysphagia and decreased appetite as well as chest pain. He has had a chest tube since admission. On admission, his creatinine was 2.2. Again, this is his historical baseline. Potassium was 4.9 on admission and has been as high as 6.0 on the afternoon of my consultation. He has not had any melena no hematochezia. No hematemesis. No recent change in his medications that he can relate. PAST MEDICAL HISTORY: 1. Lung cancer. 2. COPD. 3. Chronic kidney disease stage 3B. 4. Diabetes. 5. Coronary artery disease. SOCIAL HISTORY/FAMILY HISTORY: Former smoker. None currently. He is attended by his who is daughter of a former dialysis patient. The family history and social history otherwise noncontributory. PHYSICAL EXAMINATION: Vital Signs: Blood pressure 102/63, heart rate 101, respiration 18, afebrile. Generally: He is a chronically ill, elderly man, lying in bed, no acute distress. Skin: Pale and dry. HEENT: Conjunctivae are pink. Pupils are equal. Oropharynx is clear and moist. Neck: Supple. Trachea is midline. Neck veins are not distended. Heart: PMI is nondisplaced. Regular rate and rhythm with S4 gallop. No murmurs. Lungs: Have equal breath sounds. Coarse but no crackles. Abdomen: Soft, nontender. Bowel sounds present. No organomegaly, masses or bruits. Extremities: No edema, clubbing or cyanosis. IMPRESSION: 1. Chronic kidney disease stage 3B. He is at his historical baseline. 2. Hyperkalemia. 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 His medications are reviewed and he is not receiving any medication that we would ordinarily associate with hyperkalemia. Certainly adequate volume status such that he has adequate distal tubular sodium delivery will be important for potassium excretion. His serum bicarbonate is 19 to 21, 25 today, so I did not add sodium bicarbonate but this may be important in the future. Daily Veltassa is a straightforward strategy and I will continue that. cc: Cristian Masterson MD
[2019-03-19] MEDS: VELTASSA PO SCH (11:00)
[2019-03-19] MEDS: HYDROCORTISONE 2.5% LOTION TOP SCH (11:02)
[2019-03-19] MEDS: MIRALAX PO SCH ×2 (11:03→20:59)
[2019-03-19] MEDS: FLOMAX PO SCH (11:04)
[2019-03-19] MEDS: LACTULOSE PO SCH ×2 (11:04→21:01)
[2019-03-19] MEDS: COLACE PO SCH ×2 (11:06→21:01)
--- NOTE | 2019-03-19 11:46 | HEMO/ONC PROGRESS NOTE ---
DATE: 03/19/2019 SUBJECTIVE: The patient continues to have some increased amounts of nausea and also has some constipation. The patient had enema yesterday with no results. Patient going for HD later with Gastroenterology. OBJECTIVE: Vital Signs: Temperature 98.6 degrees, heart rate 99, respiratory rate 16, blood pressure 113/73, satting 100% on nasal cannula. General: Patient is awake, lying in bed, no acute distress noted. HEENT: Anicteric sclera. Extraocular movements intact. Mucous membranes appear to be dry. Cardiovascular: S1,S2. Clear breath sounds bilaterally. Abdomen: Soft, nontender. Bowel sounds present in all 4 quadrants. Neurologic: Alert and oriented x3. No focal deficits noted. LABORATORY DATA: White blood cell count 6.23, hemoglobin 8.9, hematocrit 27.7, platelets are 205. Potassium 5.0. BUN 28, creatinine 2.4, calcium 8.7. ASSESSMENT AND PLAN: 1. Limited stage small cell lung cancer: Treatment on hold until patient is back to baseline. Continue to monitor. 2. Pneumothorax: Shortness of breath continues to improve. Continue management per primary medical team and Pulmonology. 3. Persistent nausea: Gastroenterology has been consulted. Esophagogastroduodenoscopy to be performed by Dr. Miller later today. Continue further recommendations at this time. 4. Chronic obstructive pulmonary disease. Continue recommendation by primary medical team and Pulmonology. 5. Deep venous thrombosis prophylaxis. Continue to get out of bed as much possible. Continue to monitor closely. Dictated by ISABELLE Horn for Lester Mcnamara MD Patient seen and examined. As above. Patient underwent EGD today morning. So far today he has had a better to in terms of nausea. He had a good bowel movement. Continue current management for pneumothorax. Magic mouthwash and Zofran prior to each meal. Lester Mcnamara M.D. [facility]
--- NOTE | 2019-03-19 12:00 | PROGRESS NOTE ---
DATE: 03/19/2019 SUBJECTIVE: The patient reports that his nausea is better today. He just returned from endoscopy and he is a little groggy. OBJECTIVE: Vital Signs: Temperature 98.6 degrees, blood pressure 132/74, heart rate 98, respirations 18, O2 saturation is 95% on 1 L nasal cannula. Output 790, intake 2.1 L. General: This is an elderly male lying in bed, in no acute distress. Heart: S1, S2 normal. Regular rate and rhythm. Lungs: Diminished breath sounds at the bases. No wheezing. No rales. Abdomen: Positive bowel sounds. Soft, nontender, nondistended. Extremities: No edema. No cyanosis. Neurologic: The patient is alert and oriented x4. Labs: White blood cell count 6.2, hemoglobin 8.9, hematocrit 27, platelets 205,000. Sodium 140, potassium 5, chloride 109, CO2 19, BUN 28, creatinine 2.4, glucose 145, albumin 3.3. Chest x-ray shows worsening pulmonary edema and/or pneumonia superimposed on COPD and a small pneumothorax. ASSESSMENT AND PLAN: 1. Spontaneous right sided pneumothorax status post rightsided chest tube placement. Slowly improving. Management as per the general surgeon. Continue on supplemental oxygen. 2. Hyperkalemia. Improved. The patient is on Veltassa. Management as per the pourer bull ladle. 3. Chronic kidney disease. Stable. 4. Metastatic small cell lung cancer status post chemoradiation. Management as per Dr. Mcnamara. 5. 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 Continue on IV protonix. GI is following. 6. Diabetes mellitus type 2. Continue with sliding scale insulin. 7. Anemia. Stable. 8. Deep vein thrombosis prophylaxis. The patient is ambulatory. Continue with sequential compression devices. cc: Kacie Monterroso MD [facility]
--- NOTE | 2019-03-19 12:07 | OPERATIVE NOTE ---
PROCEDURE DATE: 03/19/2019 REQUESTING PHYSICIAN: Dr. Monterroso. PRIMARY ONCOLOGIST: Dr. Mcnamara. PROCEDURE: Esophagogastroscopy. PREOPERATIVE DIAGNOSES: 1. Odynophagia and dysphagia. 2. Non small cell lung cancer, status post radiation chemotherapy. 3. Diabetes. 4. Anemia. POSTOPERATIVE DIAGNOSES: 1. Severe esophagitis in the proximal mid esophagus likely from radiation with contact oozing. Biopsy was not obtained. 2. The Z-line visualized at 40 cm. 3. Evidence of hiatal hernia, sliding type 4 to 5 cm. 4. Evidence of food and bile in the stomach likely suggesting mild gastroparesis. 5. Gastritis of body and antrum, biopsied. 6. Normal fundus, cardia, incisura. 7. Normal duodenal bulb and second portion of the duodenum. ESTIMATED BLOOD LOSS: Minimal. COMPLICATIONS: None. ANESTHESIA: Monitored anesthesia care. SPECIMEN COLLECTED: Gastric random biopsy. DESCRIPTION OF PROCEDURE: After informed consent, the patient was explained the risks, benefits, indications, and alternatives to the procedure. The risks of the procedure, including infection, bleeding, pain, trauma to the surrounding structures, perforation, and , were explained to the patient, among others. He acknowledged this and agreed to proceed with the procedure. The patient was brought to the OR. He was turned to the left lateral position. A bite block was placed in patient's mouth. After adequate monitored anesthesia care, the upper scope introduced all the way to the second portion of the duodenum. Esophagus showed evidence of erythema, friability, ulceration, diffuse with contact oozing in the proximal mid esophagus suggesting radiation esophagitis from recent radiation and chemotherapy. The distal esophagus showed mild esophagitis. Z-line was at 40 cm. There was evidence of sliding hiatal hernia 4 to 5 cm. The stomach had evidence of bile and food. This was suctioned out partly. Complete evacuation having been obtained. There was evidence of gastric body and was biopsied. Normal fundus, cardia, and incisura was noted on retroflexion. The duodenal bulb and second portion of the duodenum appeared normal. The air was withdrawn. We elected not to do biopsy on the esophagus because of severe esophagitis in the proximal and mid esophagus. Air was slowly withdrawn. The patient tolerated the procedure well and will be monitored in the OR in stable condition. RECOMMENDATIONS: 1. The patient will continue Protonix twice daily. 2. The patient to continue Carafate 1 g 6 hours for 6 weeks. 3. Patient will start on Magic mouthwash 10 mL 3 times daily as needed for odynophagia. 4. The patient will need to follow up in the clinic in 3 weeks after discharge. At that time, we will plan for EGD with possible biopsy and dilation. 5. He will be put on aspiration precautions. 6. The patient has respiratory failure. He had a pneumothorax. He had a recent chest tube placement, and is under the care of the surgery team. 7. The patient has anemia so we may have to give him iron supplementation per the primary care team. 8. Further recommendations follow pending hospital course. Return to clinic in 3 weeks and may need EGD with dilation vs PEG tube placement. The above plan was discussed with the patient's and all questions were answered. Please call us with any further questions. Thank you for allowing us to participate in the care of this patient. cc: MD Lester Oliva MD Katherine Takundwa, MD MTDD
[2019-03-19] MEDS: ZOFRAN IV SCH ×2 (14:00→16:19)
[2019-03-19] MEDS: MBX SOLUTION MT SCH ×3 (14:05→17:34)
--- NOTE | 2019-03-19 14:27 | NEPHROLOGY PROGRESS NOTE ---
DATE: 03/19/2019 DATE AND TIME SEEN: 03/19/2019 at 0635. SUBJECTIVE: Mr. Rashid is resting quietly in bed. Head of the bed is slightly elevated. He states that he is feeling much better today. OBJECTIVE: MOST RECENT VITAL SIGNS: Temperature 98.1, blood pressure 102/63, heart rate 101, respirations 18. He is on 1.5 L. His last recorded saturation is 99%. He has had 2190 in, 790 out. LABORATORY DATA: Sodium 140, potassium 5, chloride 109, CO2 19, BUN 28, creatinine 2.4, glucose 145. His anion gap is 12, calcium 8.7, phosphorus 3.7, albumin 3.3. White count 6.23, hemoglobin 8.9, hematocrit 27.7 with a platelet count of 205,000. PHYSICAL EXAMINATION: General: This is a 78-year-old white male resting quietly in bed. He appears chronically ill, in no acute distress. Skin: Warm and dry. HEENT: Normocephalic, atraumatic. Conjunctiva is pale pink. He has HORACE. Mucous membranes are dry. Neck: Supple. Trachea midline. No evidence of JVD. Cardiovascular: Regular rate and rhythm. Lungs: Clear to auscultation bilaterally. Equal excursion. Abdomen: Soft, nontender. Positive bowel sounds. Genitourinary: Not inspected. Adequate urine out to void. Extremities: Have no edema. No clubbing or cyanosis. Neurological: Alert and oriented x3. ASSESSMENT AND PLAN: 1. Chronic kidney disease stage 3B. The patient remains at his historical creatinine baseline of 2.2 to 2.5. No indications for intervention. 2. Hyperkalemia. The patient is currently on Veltassa. Potassium has responded appropriately. 3. Acid-base balance. This remains stable. 4. Anemia. This is within target. 5. Chest pain. This is followed by the primary care. This has resolved at evaluation this a.m. I would like to thank you for allowing us to follow with this patient. Dictated by ISABELLE Mera for Cristian Masterson MD Face to face encounter, data reviewed, discussed with Alisha Guerrero on 03/19/19. I agree with the above assessment and plan of care. cc: ISABELLE Meradish, MD [facility]
[2019-03-19] MEDS: MORPHINE IV SCH ×3 (15:35→21:13)
--- NOTE | 2019-03-19 19:49 | GENERAL SURGERY PROGRESS NOTE ---
DATE: 03/19/2019 SUBJECTIVE: He is doing about the same, but he does seem a little more alert and less uncomfortable. OBJECTIVE: No fevers. No tachycardia documented. His oxygen saturation is 100% on 2 L. His right chest tube is in place. It is to water seal. He does have a persistent expiratory air leak noted. Minimal output. LABORATORY DATA: White count is normal. His potassium is 5. This is better from what it was. DIAGNOSTIC DATA: I reviewed his chest x-ray and it does show worsening edema, possible pneumonia, but a very tiny apical pneumothorax. ASSESSMENT AND PLAN: A 78-year-old gentleman with spontaneous pneumothorax, likely related to ruptured bleb. He does have an ongoing air leak that has been persistent for the last several days. Pneumothorax is improved overall and tolerating water seal. Continue pulmonary toileting. His chest tube is in appropriate position, apically placed. Will follow along. cc: Diana Hardy MD
--- NOTE | 2019-03-19 20:02 | PULMONOLOGY PROGRESS NOTE ---
DATE: 03/19/2019 SUBJECTIVE: The patient is awake, alert, and in good spirits. He continues to have an air leak. It appears to be small. OBJECTIVE: Vital Signs: Blood pressure 131/62, heart rate 87, respiratory rate 16, oxygen saturation 100 percent on 2 L per nasal cannula. HEENT: Pupils are equal and reactive. Oropharynx appears clear. Neck: Supple. Chest: Reveals good air entry bilaterally. Cardiac: S1, S2. Abdomen: Soft. Extremities: Without edema. LABORATORIES: Chest x-ray reveals small residual apical pneumothorax associated with a large bulla, with mild increased density at the right base. IMPRESSION: A 78-year-old with: 1. Spontaneous pneumothorax. 2. Limited stage small cell carcinoma. 3. Esophagitis. 4. Acute respiratory failure. 5. Chronic kidney disease. DISCUSSION: This is a 78-year-old with problems outlined above. The patient has an ongoing air leak. This is associated with a large bulla. It is only day 4, but the anatomy indicates he may have a persistent air leak, and may require a stapling procedure if his airway plate does not close. RECOMMENDATIONS: 1. Continue chest tube management per Dr. Nba Hardy. 2. Continue oxygen for hypoxemic respiratory failure. 3. Continue management of radiation induced esophagitis. 4. Cancer management per Oncology. cc: Estuardo Barillas MD
[2019-03-19] MEDS: ICAR-C PO SCH (21:01)
[2019-03-20] MEDS: HYDROCORTISONE 2.5% LOTION TOP SCH ×3 (01:33→22:14)
[2019-03-20] MEDS: PROTONIX IV SCH ×2 (02:10→16:24)
[2019-03-20] MEDS: CARAFATE LIQUID PO SCH ×4 (02:10→22:14)
[2019-03-20] MEDS: MORPHINE IV PRN (02:15)
[2019-03-20] MEDS: ATROVENT NEB INH SCH ×6 (03:15→23:28)
[2019-03-20] MEDS: XOPENEX NEB INH SCH ×6 (03:20→23:28)
[2019-03-20 07:07] LABS: HEMOGLOBIN 9.1 g/dL (14.0-18.0); MCH 34.7 PG (27-31); MCHC 32.5 g/dL (33-37); MCV 106.9 FL (81-99); MPV 9.5 FL (7.4-10.4); RBC 2.62 XMIL (4.7-6.1); RDW 17.9 % (11.5-14.5); WBC 5.7 X1000 (4.8-10.8)
--- NOTE | 2019-03-20 07:15 | Diag Imaging Result Doc PS360 ---
EXAM: CHEST-1 VIEW 03/20/2019 HISTORY: SOB TECHNIQUE: AP portable at 0529 COMMENT: There is a chest tube on the right is again noted. There is still a small right pneumothorax. There is interstitial and alveolar opacity in both lung bases which has not changed appreciably since the previous study of 03/19/2019. IMPRESSION: Small right pneumothorax. Pulmonary edema and/or pneumonia superimposed on COPD. Electronically signed by James Bland 03/20/2019 7:13 AM
[2019-03-20 07:27] LABS: ALBUMIN 3.3 g/dL (3.5-5.0); CALCIUM 8.4 mg/dL (8.8-10.2); CREATININE 2.4 mg/dL (0.7-1.2); PHOSPHORUS 3.2 mg/dL (2.7-4.5); POTASSIUM 5.1 mmol/L (3.5-5.1)
[2019-03-20] MEDS: PULMICORT INH SCH ×2 (07:38→19:30)
[2019-03-20] MEDS: MBX SOLUTION MT SCH ×3 (08:10→16:26)
[2019-03-20] MEDS: ICAR-C PO SCH ×2 (08:44→22:14)
[2019-03-20] MEDS: MIRALAX PO SCH ×2 (08:44→22:15)
[2019-03-20] MEDS: MORPHINE IV SCH (08:46)
[2019-03-20] MEDS: CENTRUM SILVER PO SCH (08:46)
[2019-03-20] MEDS: COLACE PO SCH ×2 (08:46→22:14)
[2019-03-20] MEDS: LACTULOSE PO SCH ×2 (08:49→22:15)
[2019-03-20] MEDS: HUMULIN R SUBQ SCH ×4 (08:49→22:15)
[2019-03-20] MEDS: ZOFRAN IV SCH ×2 (08:50→16:25)
[2019-03-20] MEDS: FLOMAX PO SCH ×2 (08:55→22:14)
[2019-03-20] MEDS: PROSCAR PO SCH (11:35)
[2019-03-20] MEDS: NORCO-5 PO PRN ×3 (11:36→22:53)
--- NOTE | 2019-03-20 13:55 | NEPHROLOGY PROGRESS NOTE ---
DATE: 03/20/2019 SUBJECTIVE: He states he is feeling well this morning. Lying flat. No shortness of breath. OBJECTIVE: Vital Signs: Blood pressure 143/69, heart rate 72, respirations 15, afebrile. General: No acute distress. Skin: Warm and dry. Conjunctivae are pink. Neck: Neck veins are not distended in the flat position. Heart: Regular. Lungs: Equal. No crackles. Abdomen: Soft, nontender. Bowel sounds present. Extremities: Minimal edema. No clubbing or cyanosis. IMPRESSION: 1. Chronic kidney disease stage 4. At baseline. 2. Hyperkalemia. Improved but still present. Continue veltassa for now. 3. Metabolic acidosis. Modest. He may require sodium bicarbonate but I have not initiated that as of yet. cc: Cristian Masterson MD MTDD
--- NOTE | 2019-03-20 15:12 | PROGRESS NOTE ---
DATE: 03/20/2019 SUBJECTIVE: The patient is sitting up in bed. He states that his nausea and vomiting have resolved and his stomach feels much better. OBJECTIVE: Vital Signs: Temperature 98.2 degrees, blood pressure 126/65, heart rate 90, respirations 15, and O2 saturation is 100% on 2 L nasal cannula. General: This is a chronically ill-appearing elderly male sitting up in bed in no acute distress. HEENT: Head normocephalic and atraumatic. Heart: S1, S2 normal. Regular rate and rhythm. Lungs: Equal air entry bilaterally. No crackles. No rales. Abdomen: Positive bowel sounds. Soft, nontender, and nondistended. Extremities: No edema. No cyanosis. Neurologic: The patient is alert and oriented x4. LABORATORY: White blood cell count 5.7, hemoglobin 9.1, hematocrit 28 and platelets 205,000. Sodium 139, potassium 5.1, chloride 108, CO2 21, BUN 25, creatinine 2.4, glucose 142, calcium 8.4, phosphorus 3.2, and albumin 3.3. Chest x-ray shows a small right pneumothorax and chronic obstructive pulmonary disease. ASSESSMENT AND PLAN: 1. Spontaneous right sided pneumothorax, status post right-sided chest tube placement. Management as per the general surgeon. 2. 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 Continue with Magic mouthwash, Carafate and Protonix. Gastroenterology is following. 3. Chronic kidney disease. Stable. 4. Mild metabolic acidosis. Aware. 5. Hyperkalemia. Stable. 6. Diabetes mellitus type 2. Continue with sliding scale insulin. 7. Small-cell lung cancer status post chemoradiation. Management as per Dr. Mcnamara. 8. Continue with physical therapy. cc: Kacie Monterroso MD [facility]
--- NOTE | 2019-03-20 15:51 | HEMO/ONC PROGRESS NOTE ---
DATE: 03/20/2019 SUBJECTIVE: The patient's nausea is slowly improving. The patient says he is feeling better. OBJECTIVE: Vital Signs: Temperature 98.2, respiratory rate 16, blood pressure 143/69, saturating 100% on nasal cannula. General: The patient is awake, lying in bed, no acute distress noted. HEENT: Anicteric. Pupils PERRLA. Mucous membranes moist. Cardiovascular: S1 and S2. Regular rate and rhythm. Chest: Breath sounds clear to auscultation. Abdomen: Soft and nontender. Bowel sounds present all 4 quadrants. Neurologic: Alert and oriented x3. No focal deficits noted. LABORATORY DATA: White blood cell count is 5.0, hemoglobin 9.1, hematocrit 28.0, platelets are 205,000, potassium 5.1, BUN 25, creatinine 2.4. ASSESSMENT AND PLAN: 1. Limited stage small cell lung cancer: Treatment on hold. Continue to Monitor. 2. Pneumothorax: Shortness of breath continues to improve. Continue recommendations per Pulmonology/Surgery. 3. Nausea: Esophagogastroduodenoscopy performed yesterday showed severe esophagitis. Continue recommendations per Gastroenterology. Nausea is slowly improving. 4. Chronic obstructive pulmonary disease: Continue recommendations per primary team and Pulmonology. 5. Deep venous thrombosis prophylaxis. Continue to get out of bed. Continue exercises Dictated by ISABELLE Horn for Lester Mcnamara MD [facility]
[2019-03-20] MEDS: VELTASSA PO SCH (16:24)
[2019-03-20] MEDS ORDERED: LASIX IV ONE (16:58)
[2019-03-20] MEDS: ZOSYN 2.25 GM in NS 50 ML IV SCH ×2 (17:24→22:15)
--- NOTE | 2019-03-20 17:56 | PROVIDER PROGRESS NOTE ---
Progress Note SUBJECTIVE: No acute overnight events. Afebrile. No N/V/F, CP, SOB. He reports improving odynophagia. BMx3 since yesterday. OBJECTIVE: Last Vital Signs Temp 97.9 F 03/20/19 16:00 Pulse 75 03/20/19 16:00 Resp 15 03/20/19 15:40 BP 124/60 03/20/19 16:00 Pulse Ox 92 L 03/20/19 16:00 Height 5 ft 8 in Weight 171 lb 3 oz GEN: awake, alert, NAD HEENT: anicteric, MMM, EOMI NECK: supple, no jvd PULM: CTAB, no wheezing, right chest tube in place CV: RRR, no murmurs ABD: soft NT/ND, NABS EXT: no cce NEURO: nonfocal LABS: 03/20/19 03/20/19 06:34 06:34 WBC 5.70 Hgb 9.1 L MCV 106.9 H Plt Count 205 Sodium 139 Potassium 5.1 Chloride 108 H Carbon Dioxide 21 L BUN 25 H Creatinine 2.4 H EGD 03/19/2019 POSTOPERATIVE DIAGNOSES: 1. Severe esophagitis in the proximal mid esophagus likely from radiation with contact oozing. Biopsy was not obtained. 2. The Z-line visualized at 40 cm. 3. Evidence of hiatal hernia, sliding type 4 to 5 cm. 4. Evidence of food and bile in the stomach likely suggesting mild gastroparesis. 5. Gastritis of body and antrum, biopsied. 6. Normal fundus, cardia, incisura. 7. Normal duodenal bulb and second portion of the duodenum. A/P: Mr. Rashid is a 78M with HTN, COPD, CKD, CAD, NIDDM2, chronic constipation, and right small-cell lung cancer s/p 3 cycles of chemotherapy (started on carboplatin and etoposide on 01/01/2019; last dose 02/18/2019; on hold secondary to leukopenia and thrombocytopenia) undergoing radiation who was admitted with spontaneous PTX s/p chest tube who presents to the GI service with nausea, vomiting, odynophagia, and dysphagia in the setting of recent chemoradiation. EGD yesterday showed severe esophagitis in the mid-esophagus suggestive of radiation esophagitis. Stomach showed gastritis that was biopsied. #Severe esophagitis: continue carafate, magic mouthwash, and PPI PO BID #N/V: resolved: continue antiemetics prn #Dysphagia/odynophagia: advance to full liquids; then to GI soft as tolerated #PTX: chest tube in place; still has leak; significant improvement; minimal O2 requirement; surgery following #Hyperkalemia: improved #COPD: aware #CKD: stable #DM2: on SSI #SCLC: on chemoradiation as per oncology team #Anemia: stable; no overt GI bleeding; 2/2 to chemo Will follow with you. Please call with questions
--- NOTE | 2019-03-20 18:35 | GENERAL SURGERY PROGRESS NOTE ---
DATE: 03/20/2019 SUBJECTIVE: He feels well. Strength is improving, OBJECTIVE: On exam no fevers, no tachycardia. Right chest tube has persistent air leak. I have reviewed his chest x-ray. ASSESSMENT AND PLAN: A 78-year-old gentleman with a spontaneous pneumothorax. His lungs remaining expanded on water seal, but he has persistent leak, although it does seem to be quantitatively getting some degree less. We will follow him closely through the weekend. Dr. Schmid is mergers and acquisitions associate for our group. cc: Diana Hrady MD
--- NOTE | 2019-03-20 20:08 | PULMONOLOGY PROGRESS NOTE ---
DATE: 03/20/2019 SUBJECTIVE: The patient is awake, alert, and conversant. He is without new complaints. OBJECTIVE: Vital Signs: The patient has been afebrile for the last 24 hours. Blood pressure 124/60, heart rate 75, respiratory rate 15, oxygen saturation 98% on 1 L per nasal cannula. HEENT: Pupils are equal and reactive. Oropharynx appears clear. Neck: Supple. Chest: Reveals crackles in both lung bases. Cardiac: S1, S2. Abdomen: Soft and without hepatosplenomegaly. Extremities: Reveal trace edema. LABORATORIES: Chest x-ray reveals a new infiltrate at the right base compared to 03/18/2019. IMPRESSION: 1. A 78-year-old with spontaneous pneumothorax. 2. Limited stage small cell carcinoma. 3. Esophagitis. 4. New infiltrate at the right base, possibly related to mild fluid overload or aspiration pneumonia given dysphagia. 5. Chronic kidney disease. PLAN: 1. Initiate antibiotics for possible aspiration pneumonitis. 2. Small dose of Lasix today. 3. Continue chest tube management per Dr. Hardy. 4. Continue to encourage p.o. intake. cc: Estuardo Barillas MD
[2019-03-21] MEDS: ATROVENT NEB INH SCH ×6 (03:49→23:51)
[2019-03-21] MEDS: XOPENEX NEB INH SCH ×6 (03:49→23:51)
[2019-03-21] MEDS: CARAFATE LIQUID PO SCH ×5 (05:37→21:26)
[2019-03-21] MEDS: ZOSYN 2.25 GM in NS 50 ML IV SCH ×4 (06:14→21:26)
[2019-03-21] MEDS: PROTONIX IV SCH ×3 (06:14→17:46)
[2019-03-21] MEDS: SODIUM CHLORIDE 0.9% INJ SCH (06:14)
[2019-03-21] MEDS: HUMULIN R SUBQ SCH ×4 (06:17→21:28)
--- NOTE | 2019-03-21 06:47 | Diag Imaging Result Doc PS360 ---
EXAM: CHEST-1 VIEW HISTORY: SOB TECHNIQUE: Chest single view COMPARISON: 03/20/2019 FINDINGS: No change in the right-sided chest tube. There is only a tiny apical pneumothorax. No change in the right jugular portacatheter. There are sternal wires and surgical clips and a left-sided pacemaker. The lungs are well expanded. No cardiomegaly. Mild increased interstitial markings in the mid and lower lungs. These are somewhat less prominent in the right base than they were previously. No pleural effusions identified. IMPRESSION: Mild interval improvement. Electronically signed by Galileo Jackson 03/21/2019 6:45 AM
[2019-03-21 07:17] LABS: HEMATOCRIT 30.6 % (42.0-52.0); HEMOGLOBIN 10.1 g/dL (14.0-18.0); MCH 34.5 PG (27-31); MCV 104.4 FL (81-99); MPV 9.7 FL (7.4-10.4); RBC 2.93 XMIL (4.7-6.1); RDW 17.2 % (11.5-14.5); WBC 5.48 X1000 (4.8-10.8)
[2019-03-21] MEDS: PULMICORT INH SCH ×2 (07:35→19:12)
[2019-03-21 07:56] LABS: ALBUMIN 3.6 g/dL (3.5-5.0); CALCIUM 8.9 mg/dL (8.8-10.2); CREATININE 2.6 mg/dL (0.7-1.2); PHOSPHORUS 3.6 mg/dL (2.7-4.5); POTASSIUM 4.7 mmol/L (3.5-5.1)
[2019-03-21] MEDS: MBX SOLUTION MT SCH ×4 (07:58→16:45)
[2019-03-21] MEDS: PROSCAR PO SCH (08:01)
[2019-03-21] MEDS: ICAR-C PO SCH ×2 (08:01→21:26)
[2019-03-21] MEDS: ZOFRAN IV SCH ×3 (08:02→16:47)
[2019-03-21] MEDS: MIRALAX PO SCH ×2 (08:02→21:25)
[2019-03-21] MEDS: CENTRUM SILVER PO SCH (08:02)
[2019-03-21] MEDS: LACTULOSE PO SCH ×2 (08:02→21:25)
[2019-03-21] MEDS: MORPHINE IV PRN (08:06)
[2019-03-21] MEDS: COLACE PO SCH ×2 (08:13→21:26)
[2019-03-21] MEDS: FLOMAX PO SCH ×2 (08:13→21:26)
--- NOTE | 2019-03-21 11:31 | PROGRESS NOTE ---
DATE: 03/21/2019 SUBJECTIVE: The patient states that he was up all night urinating after receiving Lasix, but otherwise he states that he is feeling a lot better and his shortness of breath has improved. OBJECTIVE: Vital Signs: Temperature 98.5 degrees, blood pressure 95/68, heart rate 85, respirations 20, O2 saturation 97% on 1 L nasal cannula. Urine output 2.1 L. General: This is a chronically ill-appearing elderly male, sitting up in bed in no acute distress. Heart: S1, S2 normal. Regular rate and rhythm. Lungs: Equal air entry bilaterally. No crackles. No rales. Abdomen: Positive bowel sounds. Soft, nontender, nondistended. Extremities: No edema. No cyanosis. Neurologic: The patient is alert and oriented x4. LABORATORY DATA: White blood cell count 5.4, hemoglobin 10, hematocrit 30, platelets 225,000. Sodium 141, potassium 4.7, chloride 103, CO2 24, BUN 31, creatinine 2.6, glucose is 166. IMAGING: Chest x-ray shows mild interval improvement. ASSESSMENT AND PLAN: 1. Spontaneous right sided pneumothorax status post right chest tube placement. Improved. 2. Severe esophagitis and dysphagia secondary to radiation. Improved. Continue with the current treatment regimen as directed by the campus receptionist. 3. Possible pneumonitis. Continue with antibiotic and bronchodilator therapy as directed by Dr. Barillas. 4. Chronic kidney disease. The patient's creatinine is slightly elevated today. However, the patient received Lasix yesterday. We will continue to monitor closely. 5. Diabetes mellitus type 2. Continue with sliding scale insulin. 6. Small cell lung cancer status post chemoradiation. Management as per Dr. Mcnamara. 7. Disposition. Will consult Physical Therapy and Occupational Therapy. cc: Kacie Monterroso MD [facility]am
[2019-03-21] MEDS ORDERED: ZOSYN ONE (12:04)
[2019-03-21] MEDS: HYDROCORTISONE 2.5% LOTION TOP SCH ×2 (12:27→21:34)
[2019-03-21] MEDS: NORCO-5 PO PRN ×2 (12:28→16:48)
--- NOTE | 2019-03-21 13:47 | GENERAL SURGERY PROGRESS NOTE ---
DATE: 03/21/2019 SUBJECTIVE: The patient denies shortness of breath. OBJECTIVE: Vitals: He is afebrile. Vital signs are stable. Chest: The chest tube does have an air leak when he coughs. He has no increased work of breathing on chest examination. He has bilateral breath sounds. IMAGING: The chest x-ray reveals a small, apical right pneumothorax. ASSESSMENT/PLAN: A 78-year-old male with persistent pneumothorax on the right side. He has a chest tube in place. We will keep this and continue to follow. cc: Andrews Schmid MD
[2019-03-21] MEDS: VELTASSA PO SCH (16:45)
--- NOTE | 2019-03-21 17:24 | PULMONOLOGY PROGRESS NOTE ---
DATE: 03/21/2019 SUBJECTIVE: The patient is awake, alert. He did have some sleep interruption associated with the Lasix dosing. OBJECTIVE: Vital Signs: The patient has been afebrile for the last 24 hours. Blood pressure 100/63, respiratory rate 20, oxygen saturation 95% on nasal cannula. HEENT: Pupils are equal and reactive. Oropharynx is clear. Neck: Is supple. Chest: Reveals prolonged expiratory phase. Small air leak noted. Cardiac: S1, S2. Abdomen: Is soft. Extremities: Without edema. LABORATORIES: Chest x-ray reveals mild vascular prominence. The increased markings in the lower lung [place] have diminished compared to 03/20/2019. White blood count 5.5, hemoglobin 10.1, platelet count 225,000. Sodium 141, potassium 4.7, chloride 103, bicarbonate 24, BUN 31, creatinine 2.6. IMPRESSION: 78-year-old with 1. Spontaneous pneumothorax with ongoing air leak. 2. Esophagitis. 3. Limited stage small cell carcinoma. 4. Possible infiltrate at the right base. The patient's x-ray has improved following diuresis, making pneumonia less likely. 5. Chronic kidney disease. PLAN: 1. Continue current antibiotics. We will discontinue antibiotics if he remains stable. 2. Attempt to balance intake and output. 3. Continue chest tube management per the surgical team. 4. Encourage p.o. intake. cc: Estuardo Barillas MD
--- NOTE | 2019-03-21 18:57 | GASTROENTEROLOGY PROGRESS NOTE ---
DATE: 03/21/2019 SUBJECTIVE: The patient is resting in bed. His is at bedside. The patient has been eating a little less today, according to the . He has decreased p.o. intake but he is swallowing food well. He has moved his bowels. He denies any fevers, rigors or chills. He denies any nausea or vomiting. OBJECTIVE: Vital signs: Temperature 98.1 degrees, pulse of 97, respiratory rate of 20, blood pressure 112/60, saturating 98% on nasal cannula. Generally the patient is moderately built, lying in bed in no acute distress. HEENT: Pale conjunctivae. No icterus. Neck supple. Abdomen is protuberant soft, nondistended. No guarding or rebound. Extremities: No cyanosis or clubbing. Neurologic: Alert, awake, oriented. Chest: He has a right lung chest tube for recent pneumothorax. LABORATORY DATA: Hemoglobin and hematocrit are 10.1 and 30.6, white count of 5.4, platelet count of 225,000. Sodium 140, potassium 4.7, chloride 103, bicarbonate 24, anion gap 14, BUN of 31, creatinine 2.6, glucose of 166, calcium is 8.9, phosphorus 3.6, albumin 3.6. DIAGNOSTIC DATA: Chest x-ray done today showed mild interval improvement. He has a left-sided pacemaker. The lungs are well expanded. Right-sided chest tube noted. Only a tiny apical pneumothorax noted. IMPRESSION AND PLAN: 1. Severe esophagitis causing odynophagia and dysphagia. We will continue on Carafate, proton pump inhibitors b.i.d. and magic mouthwash. 2. Nausea and vomiting, improved. 3. Dysphagia and odynophagia. We will advance to full liquid diet and then to gastrointestinal soft diet as tolerated. 4. Malnutrition. Continue on Ensure 3-4 times daily. 5. Pneumothorax. He has a chest tube in place. Dr. Schmid ]is following. 6. Chronic obstructive pulmonary disease. Aware. 7. Chronic kidney disease, stable. 8. Type 2 diabetes, on sliding scale insulin. 9. Small-cell lung cancer in the right lung, status post 3 cycles of chemotherapy. Started on carboplatin and etoposide. Last dose was 02/18/2019. 10. Complicated leukopenia and thrombocytopenia. He is also undergoing radiation, which led to spontaneous pneumothorax and placement of chest tube. 11. Anemia. Continue to watch for now. 12. Continue iron C b.i.d. for anemia and multivitamin once daily. 13. Constipation. Continue lactulose 30 mL p.o. b.i.d. He is moving his bowels. He is also on MiraLAX 17 g p.o. b.i.d. We will hold laxatives if he has more than 3 bowel movements in 24 hours. The above plan was discussed with the patient and his family at bedside and all questions answered. Please call us with any questions. cc: MD Lester Oliva MD [facility]
[2019-03-22] MEDS: CARAFATE LIQUID PO SCH ×4 (02:28→19:56)
[2019-03-22] MEDS: ZOSYN 2.25 GM in NS 50 ML IV SCH ×4 (03:49→23:06)
[2019-03-22] MEDS: ATROVENT NEB INH SCH ×5 (04:13→23:39)
[2019-03-22] MEDS: XOPENEX NEB INH SCH ×5 (04:14→23:39)
[2019-03-22] MEDS: HUMULIN R SUBQ SCH ×4 (06:10→20:49)
[2019-03-22] MEDS: PROTONIX IV SCH ×3 (06:10→18:40)
[2019-03-22] MEDS: SODIUM CHLORIDE 0.9% INJ SCH (06:10)
[2019-03-22 07:18] LABS: HEMATOCRIT 29.5 % (42.0-52.0); HEMOGLOBIN 9.9 g/dL (14.0-18.0); MCH 34.4 PG (27-31); MCHC 33.6 g/dL (33-37); MCV 102.4 FL (81-99); MPV 9.6 FL (7.4-10.4); RBC 2.88 XMIL (4.7-6.1); WBC 6.59 X1000 (4.8-10.8)
[2019-03-22 07:23] LABS: ALBUMIN 3.4 g/dL (3.5-5.0); CALCIUM 9.1 mg/dL (8.8-10.2); CREATININE 2.9 mg/dL (0.7-1.2); PHOSPHORUS 3.6 mg/dL (2.7-4.5); POTASSIUM 4.8 mmol/L (3.5-5.1)
[2019-03-22] MEDS: PULMICORT INH SCH ×2 (07:25→20:03)
[2019-03-22] MEDS: MBX SOLUTION MT SCH ×4 (07:58→16:29)
[2019-03-22] MEDS: FLOMAX PO SCH ×3 (07:59→23:09)
[2019-03-22] MEDS: CENTRUM SILVER PO SCH (08:00)
[2019-03-22] MEDS: PROSCAR PO SCH (08:00)
[2019-03-22] MEDS: MIRALAX PO SCH ×2 (08:00→23:08)
[2019-03-22] MEDS: ICAR-C PO SCH ×3 (08:00→23:09)
[2019-03-22] MEDS: COLACE PO SCH ×2 (08:00→23:07)
[2019-03-22] MEDS: ZOFRAN IV SCH ×4 (08:00→16:21)
[2019-03-22] MEDS: LACTULOSE PO SCH (08:01)
[2019-03-22] MEDS: HYDROCORTISONE 2.5% LOTION TOP SCH ×2 (08:01→23:10)
--- NOTE | 2019-03-22 08:02 | Diag Imaging Result Doc PS360 ---
EXAM: CHEST-1 VIEW INDICATION: SOB TECHNIQUE: One view COMPARISON: 03/21/2019 FINDINGS: Right chest port and right chest tube are in stable positions. The very small right apical pneumothorax is unchanged. There are increased interstitial markings at the lung bases are essentially stable. No new consolidation is identified. Cardiac silhouette is stable. IMPRESSION: Stable chest. Electronically signed by Evan Rice 03/22/2019 8:00 AM
[2019-03-22] MEDS: NORCO-5 PO PRN ×2 (08:08→16:24)
[2019-03-22] MEDS: MORPHINE IV PRN (10:10)
[2019-03-22] MEDS ORDERED: NS 1,000 ML ONE (10:14)
[2019-03-22 11:48] LABS: URINE SOURCE CATH
[2019-03-22 11:57] LABS: BILIRUBIN URINE NEGATIVE (NEGATIVE); BLOOD URINE MODERATE (NEGATIVE); COLOR YELLOW; GLUCOSE URINE NEGATIVE (NEGATIVE); KETONE URINE NEGATIVE (NEGATIVE); LEUKOCYTES URINE NEGATIVE (NEGATIVE); NITRITE URINE NEGATIVE (NEGATIVE); PROTEIN URINE TRACE mg/dL (NEGATIVE); SP GRAVITY URINE 1.001; TURBIDITY URINE CLEAR (CLEAR); UR EPITHELIAL CELLS <10 /HPF (<10); URINE BACTERIA NEGATIVE /HPF; URINE RBC TNTC /HPF (<10); URINE WBC <10 /HPF (<10); UROBILINOGEN URINE NORMAL (NORMAL)
[2019-03-22 12:08] LABS: UR CREAT RANDOM 46.3 mg/dL (14-26)
--- NOTE | 2019-03-22 12:59 | PROGRESS NOTE ---
DATE: 03/22/2019 SUBJECTIVE: The patient has been complaining of nausea and had an episode of vomiting today. He also reports that his urine output has decreased and he has to strain to urinate. He had a bladder scan done this morning which revealed 832 mL of urine in his bladder. OBJECTIVE: Vital Signs: Temperature 98.1 degrees blood pressure 123/58, heart rate 84, respirations 18, O2 saturation 95% on 1 L nasal cannula. Intake and Output: Intake 100, output 675. General: This is a chronically ill-appearing elderly male, sitting up in bed in no acute distress. Heart: S1, S2 normal. Regular rate and rhythm. Lungs: Equal air entry bilaterally with no wheezing, no rales, no rhonchi. Abdomen: Positive bowel sounds. Soft. Mild tenderness on deep palpation. Extremities: No edema, no cyanosis. No calf tenderness. Neurologic: The patient is alert and oriented x4. He is hard of hearing. He is able to move all 4 extremities. LABORATORIES: White blood cell count 6.5, hemoglobin 9.9, hematocrit 29, platelets 217,000. Sodium 138, potassium 4.8, chloride 103, CO2 of 24, BUN 38, creatinine 2.9, glucose 221. ASSESSMENT AND PLAN: 1. Spontaneous right sided pneumothorax status post right chest tube placement. Stable. General surgery is following. 2. Acute kidney injury on chronic kidney disease. The BUN and creatinine have been slowly rising. This morning the patient was noted to be retaining 832 mL of urine. A Garcia catheter has been placed. We will also order a renal ultrasound and repeat urine studies. 3. Urinary retention. The patient is on Proscar and Flomax. We will consult the urologist. Continue with the Garcia catheter at this time. 4. Pneumonitis. Continue on antibiotic and bronchodilator therapy. 5. Severe esophagitis and dysphagia secondary to radiation. The patient had nausea this morning and has received Zofran. Continue with the current treatment regimen as directed by the tea tree farm worker. 6. Small cell lung cancer status post chemoradiation. Management as per Dr. Mcnamara. 7. Diabetes mellitus, type 2. Continue on sliding scale insulin. 8. Anemia. Stable. 9. Deep vein thrombosis prophylaxis. Continue with SCDs. DISPOSITION: Physical Therapy has been consulted to start working with the patient on improving his mobility. cc: Kacie Monterroso MD [facility]
--- NOTE | 2019-03-22 13:18 | Diag Imaging Result Doc PS360 ---
EXAM: US RENAL 2 (RETROPER) COMPLETE INDICATION: zbigniew/arf TECHNIQUE: COMPARISON: 11/14/2016 FINDINGS: The kidneys are grossly normal in echotexture with no discrete renal mass or hydronephrosis. The right kidney measures 10 cm and the left kidney measures 10.8 cm in the greatest longitudinal axes. Right renal cortex measures up to 0.9 cm and the left renal cortex measures up to 1.2 cm in thickness. There is a Garcia catheter in the urinary bladder and the bladder is nondistended. IMPRESSION: Unremarkable renal ultrasound. Electronically signed by Evan Rice 03/22/2019 1:15 PM
--- NOTE | 2019-03-22 15:42 | CONSULTATION ---
DATE OF CONSULTATION: 03/22/2019 ATTENDING AND REFERRING PHYSICIAN: Hospitalist. HISTORY OF PRESENT ILLNESS: This 78-year-old male was recently diagnosed with small-cell cancer of the lung. He is currently undergoing chemoradiation. He has a history of spontaneous pneumothorax. He developed some shortness of breath and some pain and was seen in the emergency room, where another pneumothorax was diagnosed. A chest tube was placed. The patient was also having some abdominal pain and he underwent EGD. He also had some biopsies taken. The patient states that when he does not take his medication for his enlarged prostate he has problems voiding. A scan this morning was over 800 mL. A Garcia catheter was placed and he states he feels much better. The patient has a long history of obstructive and irritative voiding symptoms. He underwent cystoscopic exam with bilateral retrograde pyelograms and bladder biopsies on 14 January 2019. The bilateral retrograde pyelograms revealed normal collecting systems bilaterally. The bladder biopsies were benign. He is on Proscar 5 mg a day and Flomax 0.4 mg b.i.d. This medication has been restarted. PAST MEDICAL HISTORY: Small cell lung cancer, spontaneous pneumothoraces, COPD, diabetes, coronary artery disease, chronic renal insufficiency with episodes of hyperkalemia, chronic gastric problems. CURRENT MEDICATIONS: Documented on the chart and include Flomax, Proscar, and Zosyn. PAST SURGICAL HISTORY: Coronary artery bypass grafting, umbilical hernia repair, cystoscopic exam with bladder biopsies, placement of chest tube x2, port placement, lung mass biopsy, and most recently esophagogastroduodenoscopy. SOCIAL HISTORY: Cigarettes, 2 packs a day for over 55 years; quit several weeks ago. ETOH use rare. ALLERGIES: He has no known drug allergies. REVIEW OF SYSTEMS: He states he does not feel well ever since he started chemotherapy and radiation therapy for his lung cancer. He states he does feel better since the Garcia catheter was placed. He denies any recent bowel problems or heart problems. PHYSICAL EXAMINATION: General: A mildly obese, age apparent, normally-developed, white male, oriented in all ways and cooperative. HEENT: Normal for age. Lungs: Clear. Distant breath sounds. Abdomen: Protuberant, soft, nontender. Well healed scars. Normal bowel sounds. No hepatosplenomegaly or masses. : Normal male with Garcia catheter in place. Both testes are down. Scrotal exam is normal. Rectal: Deferred today but on 14 January 2019 prostate was smooth and symmetric, about 50-60 g. Extremities: No CCE. Neurologic: No focal deficits. His chest tube is in place. LABORATORY EVALUATION: White count of 6.59, hemoglobin 9.9, hematocrit of 29.5, and platelets 217,000. Serum electrolytes are normal. His bicarb is 24, BUN 38, creatinine 2.9. IMPRESSION: 1. Patient with multiple medical problems with history of an enlarged prostate with obstructive and irritative voiding symptoms. 2. History of urinary retention. RECOMMENDATIONS: 1. Continue Flomax 0.4 mg b.i.d. and Proscar 5 mg a day. 2. Continue Garcia drainage for at least 5 more days. This will allow the bladder to regain its tone. 3. Before removing the Garcia he should be able to stand to facilitate voiding. Thank you for this consultation. cc: Darryl Cox MD
[2019-03-22] MEDS: VELTASSA PO SCH (16:25)
--- NOTE | 2019-03-22 17:47 | PULMONOLOGY PROGRESS NOTE ---
DATE: 03/22/2019 SUBJECTIVE: The patient is awake and alert. He reports Garcia catheter was placed for bladder distention and he feels significantly better. OBJECTIVE: Vital Signs: The patient has been afebrile for the last 24 hours. Blood pressure 123/58, heart rate 90, respiratory rate 19. Oxygen saturation 95% on nasal cannula. HEENT: Pupils are equal and reactive. Oropharynx is clear. Neck: Supple. Chest: Reveals crackles in the lung bases. He has an audible air grover with a cough through his chest tube. Cardiac: S1, S2. Abdomen: Soft. Extremities: Without edema. LABORATORY: Tiny apical pneumothorax persists. Chest tube is in good position. Mild bibasilar infiltrates. IMPRESSION: A 78-year-old being treated with chemoradiation for limited stage of small cell carcinoma with spontaneous pneumothorax with ongoing air leak, esophagitis, chronic kidney disease and BPH with obstructive uropathy. PLAN: 1. Continue current antibiotics. 2. Chest tube management per surgery team. The patient has a large bulla in this area, which may or may not seal. 3. Encourage p.o. intake. cc: Estuardo Barillas MD [facility]
--- NOTE | 2019-03-22 18:19 | GASTROENTEROLOGY PROGRESS NOTE ---
DATE: 03/22/2019 SUBJECTIVE: Patient resting in bed. His was at bedside. The patient is doing well. He denies any fevers, rigors, chills. Denies any nausea or vomiting. He is eating better. He is keeping liquids down. OBJECTIVE: Vital Signs: Temperature of 98.1 degrees, pulse rate of 90, respiratory rate of 19, blood pressure 122/58, saturating 90% on 3 L per nasal cannula. General Appearance: Moderately built and nourished, lying in bed, in no acute distress. HEENT: Pale conjunctivae. No icterus. Neck: Supple. Abdomen: Protuberant, soft, nontender, nondistended. No guarding or rebound. Extremities: No cyanosis or clubbing. Neurologic: He is alert, awake, oriented x3. LABS: Hemoglobin and hematocrit are 9.9 and 29.5, white count of 6.5, and platelet count of 217,000. Sodium 130, potassium 4.8, chloride 103, bicarb of 24, anion gap 11, BUN 30, creatinine 2.9, glucose of 21, calcium 9.1, phosphorus 3.6, albumin of 3.4. Urinalysis is showing trace protein, moderate blood, positive RBCs. Urine culture is showing no growth. IMPRESSION AND PLAN: 1. Spontaneous right-sided pneumothorax, status post chest tube placement. General Surgery is following. 2. Urinary retention. Urology has been consulted. He is on Flomax and Proscar. 3. Severe radiation associated esophagitis, causing odynophagia and dysphagia. He will continue on Magic Mouthwash, Carafate, and proton pump inhibitors. 4. Small cell lung cancer, status post chemotherapy and radiation. He has been under the care of Dr. Mcnamara. 5. Type 2 diabetes, on sliding scale insulin. 6. Anemia, stable. Continue to watch for now. Transfuse as needed. 7. Deep venous thrombosis prophylaxis with sequential compression devices. 8. Pneumonitis. He is on antibiotic and bronchodilator therapy. 9. Bowel regimen with Colace 100 mg p.o. b.i.d. 10. For anemia, we will put him on iron C b.i.d. and multivitamin daily. 11. The patient will return to the clinic in 4 weeks after discharge. At that time, we will decide about a possible esophagogastroduodenoscopy with dilation. 12. The above plans were discussed with the patient and family at bedside. We will sign off at this time. Please call us with any further questions. cc: MD Kacie Oliva MD
[2019-03-23] MEDS: CARAFATE LIQUID PO SCH ×4 (03:21→20:35)
[2019-03-23] MEDS: ZOSYN 2.25 GM in NS 50 ML IV SCH ×4 (04:13→21:40)
[2019-03-23] MEDS: VELTASSA PO SCH ×2 (04:13→13:05)
[2019-03-23] MEDS: XOPENEX NEB INH SCH ×7 (04:20→23:10)
[2019-03-23] MEDS: ATROVENT NEB INH SCH ×7 (04:20→23:10)
[2019-03-23] MEDS: HUMULIN R SUBQ SCH ×5 (05:52→20:34)
[2019-03-23] MEDS: PROTONIX IV SCH ×2 (05:52→17:27)
[2019-03-23 07:06] LABS: CALCIUM 8.6 mg/dL (8.8-10.2); CREATININE 2.6 mg/dL (0.7-1.2); PHOSPHORUS 3.2 mg/dL (2.7-4.5); POTASSIUM 5.5 mmol/L (3.5-5.1)
[2019-03-23 07:22] LABS: HEMOGLOBIN 8.5 g/dL (14.0-18.0); MCH 34.8 PG (27-31); MCHC 32.7 g/dL (33-37); MCV 106.6 FL (81-99); MPV 9.8 FL (7.4-10.4); RBC 2.44 XMIL (4.7-6.1); RDW 16.7 % (11.5-14.5); WBC 4.6 X1000 (4.8-10.8)
[2019-03-23] MEDS: PULMICORT INH SCH ×2 (07:45→19:47)
--- NOTE | 2019-03-23 07:46 | Diag Imaging Result Doc PS360 ---
EXAM: CHEST-1 VIEW INDICATION: SOB TECHNIQUE: One view COMPARISON: 03/22/2019 FINDINGS: Right chest port is in stable position. The right chest tube is stable. The tiny right apical pneumothorax is unchanged. There are increased interstitial markings at the lung bases similar to previous studies. No new consolidation is identified. Cardiac silhouette is stable. IMPRESSION: Essentially stable chest. Electronically signed by Evan Rice 03/23/2019 7:43 AM
[2019-03-23] MEDS: MBX SOLUTION MT SCH ×3 (08:17→17:27)
[2019-03-23] MEDS: MIRALAX PO SCH ×2 (10:05→20:34)
[2019-03-23] MEDS: FLOMAX PO SCH ×2 (10:08→20:34)
[2019-03-23] MEDS: ZOFRAN IV SCH ×3 (10:08→17:26)
[2019-03-23] MEDS: COLACE PO SCH ×2 (10:09→20:34)
[2019-03-23] MEDS: CENTRUM SILVER PO SCH (10:09)
[2019-03-23] MEDS: ICAR-C PO SCH ×2 (10:09→20:34)
[2019-03-23] MEDS: PROSCAR PO SCH (10:09)
[2019-03-23] MEDS: HYDROCORTISONE 2.5% LOTION TOP SCH ×2 (10:10→20:35)
--- NOTE | 2019-03-23 11:30 | NEPHROLOGY PROGRESS NOTE ---
DATE: 03/23/2019 SUBJECTIVE: The patient is sitting up in bed. His is at the bedside. He has not eaten very much over the night. OBJECTIVE: Vital Signs: Temperature 98.9 degrees, pulse 83, respiratory rate 18, blood pressure 118/62. Intake 1 L, output 1.4 L. This is urine output. His chest tube output has not been documented. PHYSICAL EXAMINATION: General: This is a chronically ill-appearing, elderly gentleman resting in bed. He is awake and alert. He is nonverbal but does nod and shake his appropriately. HEENT: Normocephalic, atraumatic. HORACE. Oral mucosa moist. Neck: Supple without JVD. Cardiovascular: Regular rate and rhythm. Pulmonary: He is clear bilaterally. Abdomen: Soft with positive bowel sounds. He is obese. : Garcia catheter. Excellent urine output. Extremities: Trace edema. No clubbing, cyanosis. Integumentary: Skin is warm and dry. Chest tube insertion site on right chest wall with no drainage. LABORATORY DATA: WBC of 4.6, hemoglobin 8.5. Sodium 139, potassium 5.5, CO2 24, BUN 36, creatinine 2.6 (2.9, 2.6, 2.4). ASSESSMENT AND PLAN: 1. Chronic kidney disease stage IV. He did have a small bump in his creatinine over the weekend. He had a Garcia catheter placed secondary to urinary retention. He has had increased urine output since that has been placed and improvement in his renal function. He did not have any hydronephrosis noted on renal ultrasound. He did have some IV fluids given over the weekend as well. The family is trying to encourage the patient to take p.o. Renal function is still is essentially at his baseline. He has no indications for intervention other than the previous treatment. Continue to monitor. 2. Hyperkalemia, stable. Continue V[place]. 3. Metabolic acidosis, improved. Continue to monitor. 4. Spontaneous pneumothorax. Continues with a chest tube. Followed by primary and Pulmonology. 5. Radiation associated esophagitis. Followed by Gastroenterology. Dictated by ISABELLE Ordonez for Cristian Masterson MD Face to face encounter, data reviewed, discussed with Cleo Esteban on 03/23/19. I agree with the above assessment and plan of care. cc: Cristian Masterson MD [facility]
--- NOTE | 2019-03-23 11:46 | GASTROENTEROLOGY PROGRESS NOTE ---
DATE: 03/23/2019 SUBJECTIVE: The patient is resting in bed. He is feeling better. He denies any new complaints. He is trying to improve his oral intake. PHYSICAL EXAMINATION: Vital Signs: Temperature 98 degrees, pulse rate of 82, respiratory rate of 18, blood pressure of 102/60, saturating 99% on 2 L nasal cannula. General Appearance: He is moderately built, moderately nourished. Lying in bed, in no acute distress. HEENT: Pale conjunctivae. No icterus. Neck: Supple. Abdomen: Protuberant, soft, nontender, nondistended. No guarding. Extremities: No cyanosis, clubbing. Neurologic: He is alert, awake, and oriented x3. LABS: Hemoglobin and hematocrit are 8.5 and 26, white count of 4.6, platelet count of 147,000. Sodium of 139, potassium 5.5, chloride of 104, bicarb of 24, anion gap 11, BUN of 32, creatinine 2.6, glucose of 160, calcium is 8.6, phosphorus 3.2, albumin of 3.0. IMPRESSION AND PLAN: 1. Odynophagia and dysphagia. We will continue on Carafate proton pump inhibitor and Magic Mouthwash. I encouraged him to keep taking protein supplements like Ensure and Boost. If the patient continues to have trouble with swallowing, we may have to consider a percutaneous endoscopic gastrostomy tube placement. 2. Small cell lung cancer, on chemotherapy and radiation. He still has 12 cycles of radiation left, which can worsen esophagitis. If the patient loses weight and is not able to keep anything down, then we will have to consider percutaneous endoscopic gastrostomy tube placement. I discussed the above plan with the patient and family at bedside. 3. Spontaneous right-sided pneumothorax, status post chest tube placement. General surgery is following. 4. Anemia. Continue to watch for now. Transfuse as needed. 5. Deep venous thrombosis prophylaxis. Sequential compression devices. 6. Pneumonitis. He is on antibiotics and bronchodilator therapy. 7. Bowel regimen with Colace 100 mg by mouth twice a day. 8. Continue iron C twice a day once daily for anemia. 9. The patient will follow up in the clinic in 4 weeks after discharge. At that time, we will decide about possible EGD with dilation vs percutaneous endoscopic gastrostomy tube placement if symptomatic. If the patient has finished his treatments, we may eventually be able to dilate the esophagus for helping with the dysphagia and odynophagia. The above plans were discussed with the patient and family. All their questions were answered. Please call us with any further questions. cc: MD Lester Oliva MD [facility]
--- NOTE | 2019-03-23 12:11 | HEMO/ONC PROGRESS NOTE ---
DATE: 03/23/2019 SUBJECTIVE: Patient is feeling a lot better at this time. The patient had a catheter placed for bladder distention. The patient says that made him feel much better at this time. The patient denies any new complaints at this time. OBJECTIVE: Vital Signs: Temperature 98 degrees, heart rate 78, respiratory 16, blood pressure 136/87, 100% on nasal cannula. General: Patient is awake, lying in bed, no acute distress noted. HEENT: Anicteric. Pupils reactive, mucous membranes dry. Cardiovascular: S1- S2 without murmur. Chest: Bilateral breath sounds clear to auscultation. Abdomen: Soft, nontender. Bowel sounds present in all 4 quadrants. Neurological: Awake, alert, and oriented x3. LABORATORY DATA: White blood cell count 4.60, hemoglobin 8.5, hematocrit 26, platelets are 147,000. Potassium 5.5, BUN 36, creatinine 2.6. ASSESSMENT/PLAN: 1. Limited stage small cell lung cancer: Treatment on hold at this time. Continue to monitor. 2. Pneumothorax: Shortness of breath continues to improve. Continue orders per Primary Medical Team, Pulmonology. 3. Nausea: Nausea slowly improving. Continue orders per Primary Medical Team and Gastroenterology. 4. Chronic obstructive pulmonary disease: Continue treatment per Primary Medical Team And Pulmonology. 5. Acute kidney injury on chronic kidney disease: Continue treatment per Primary Medical Team. 6. DVT prophylaxis: Continue to have patient get out of bed as much as possible. Continued orders per Primary Medical Team. 7. Support: Continue protein shakes. Continue to have patient exercise while in the hospital. Dictated by ISABELLE Horn for Lester Mcnamara MD Patient seen and examined. Continues to have persistent leak from his pneumothorax. Nausea improved. Odynophagia manageable with Magic mouthwash and pain medications. Get him out of bed. Continue current management. Lester Mcnamara M.D. [facility]
--- NOTE | 2019-03-23 13:41 | PULMONOLOGY PROGRESS NOTE ---
DATE: 03/23/2019 SUBJECTIVE: The patient is awake, alert and conversant. He reports he feels significantly better with adequate bladder drainage. He continues to have an audible air grover with cough. OBJECTIVE: Vital Signs: Blood pressure 112/62, heart rate 86, respiratory rate 16, oxygen saturation 96% on 3 L per nasal cannula. HEENT: Pupils are equal and reactive. Oropharynx is clear. Neck: Supple. Chest: Reveals prolonged expiratory phase. Cardiac exam: S1, S2. Abdomen: Soft. Extremities: Without edema. LABORATORIES: Chest x-ray reveals small right apical pneumothorax with mild increased interstitial markings in the lung bases. IMPRESSION: A 78-year-old with: 1. Small cell lung cancer, being treated with chemoradiation. 2. Spontaneous pneumothorax. 3. Acute hypoxemic respiratory failure. 4. Esophagitis. 5. Chronic kidney disease. 6. Benign prostatic hypertrophy with bladder outlet obstruction and obstructive uropathy. RECOMMENDATIONS: 1. Continue chest tube management per General Surgery. The patient continues to have a small air leak. 2. Continue current antibiotic regimen. 3. Encourage p.o. intake. cc: Estuardo Barillas MD
--- NOTE | 2019-03-23 13:43 | GENERAL SURGERY PROGRESS NOTE ---
DATE: 03/23/2019 SUBJECTIVE: Continues to feel better. No fevers. No tachycardia. OBJECTIVE: Vitals: Blood pressure 112/64, oxygen saturation 96% on 3 L. General: He is alert. Right: Chest tube in place to water-seal. Has a persistent air leak mostly with Valsalva. LABORATORY/IMAGING: White count 4. Creatinine is 2.6. I reviewed his x-ray, overall stable findings. ASSESSMENT AND PLAN: A 78-year-old gentleman with right spontaneous pneumothorax, most likely from ruptured bleb. The pneumothorax has resolved, but he has a persistent air leak. Difficult situation. We will continue chest tube for now. I think he would do very poorly with any thoracoscopic or open thoracotomy procedure to resolve his leak. I discussed this with the family. We will continue current management. His albumin is low, which could be affecting his healing to some degree. cc: Diana Hardy MD
--- NOTE | 2019-03-23 13:52 | PROGRESS NOTE ---
DATE: 03/23/2019 SUBJECTIVE: The patient states that he feels better today. No acute events noted overnight. The patient is not eating very much. OBJECTIVE: Vital Signs: Temperature 97.5 degrees, blood pressure 112/64, heart rate 86, respirations 16, O2 saturation 96% on 3 L nasal cannula. General: This is a chronically ill- appearing elderly male lying in bed in no acute distress. Heart: S1, S2 normal. Regular rate and rhythm. Lungs: Equal air entry bilaterally. No crackles. No rales. Abdomen: Positive bowel sounds. Soft, nontender, nondistended. Extremities: No edema, no cyanosis. Neurologic: The patient is alert and oriented x4. LABS: White blood cell count 4.6, hemoglobin 8.5, hematocrit 26, platelets 147,000. Sodium 139, potassium 5.5, chloride 104, CO2 24, BUN 36, creatinine 2.6, glucose 164, albumin 3. Chest x-ray shows a tiny right apical pneumothorax. ASSESSMENT AND PLAN: 1. Spontaneous right sided pneumothorax status post right chest tube placement. The chest x-ray continues to show a tiny pneumothorax. He has an air leak. Continue with the chest tube. Management as per the general surgeon. 2. Chronic kidney disease stage 4. Stable. 3. Urinary retention. Continue on Flomax and Proscar. The patient currently has a Garcia catheter in place. 4. Pneumonitis. Continue on antibiotic therapy and bronchodilator therapy. 5. Hyperkalemia. Continue on Veltassa. 6. Severe esophagitis and dysphagia secondary to radiation therapy. Continue on the current treatment regimen as directed by Dr. Miller. 7. Small cell lung cancer status post chemoradiation. Management as per Dr. Mcnamara. 8. Protein calorie malnutrition. Continue with meal supplementation. 9. Diabetes mellitus type 2. Continue on sliding scale insulin. 10. Anemia. Stable. 11. Deep vein thrombosis prophylaxis. Continue with sequential compression devices. 12. Disposition. Continue with physical therapy. cc: MD BLANCA Tirado
[2019-03-23] MEDS: NORCO-5 PO PRN ×2 (14:50→22:12)
[2019-03-24] MEDS: CARAFATE LIQUID PO SCH ×4 (02:18→20:12)
[2019-03-24] MEDS: ZOSYN 2.25 GM in NS 50 ML IV SCH ×4 (05:07→22:09)
[2019-03-24] MEDS: XOPENEX NEB INH SCH ×6 (05:08→23:42)
[2019-03-24] MEDS: ATROVENT NEB INH SCH ×6 (05:08→23:42)
[2019-03-24] MEDS: PROTONIX IV SCH ×2 (05:53→17:01)
[2019-03-24] MEDS: SODIUM CHLORIDE 0.9% INJ SCH ×2 (05:53→17:01)
[2019-03-24] MEDS: HUMULIN R SUBQ SCH ×5 (05:54→20:13)
--- NOTE | 2019-03-24 06:50 | Diag Imaging Result Doc PS360 ---
EXAM: CHEST-1 VIEW HISTORY: SOB TECHNIQUE: Portable chest single view COMPARISON: 03/23/2019 FINDINGS: The lungs are hyperexpanded. There is a right-sided chest tube. Tiny apical pneumothorax. There are multiple sternal wires and surgical clips and a left-sided pacemaker. No cardiomegaly. Increased interstitial markings in the mid and lower lungs similar to the prior study. IMPRESSION: No significant interval change. Electronically signed by Galileo Jackson 03/24/2019 6:47 AM
[2019-03-24 07:13] LABS: HEMATOCRIT 24.4 % (42.0-52.0); HEMOGLOBIN 7.9 g/dL (14.0-18.0); MCH 34.2 PG (27-31); MCHC 32.4 g/dL (33-37); MCV 105.6 FL (81-99); MPV 9.8 FL (7.4-10.4); RBC 2.31 XMIL (4.7-6.1); RDW 16.6 % (11.5-14.5); WBC 4.32 X1000 (4.8-10.8)
[2019-03-24 07:22] LABS: CALCIUM 8.8 mg/dL (8.8-10.2); CREATININE 2.5 mg/dL (0.7-1.2); PHOSPHORUS 2.5 mg/dL (2.7-4.5); POTASSIUM 5.2 mmol/L (3.5-5.1)
[2019-03-24] MEDS: PULMICORT INH SCH ×2 (07:45→19:56)
--- NOTE | 2019-03-24 08:14 | NEPHROLOGY PROGRESS NOTE ---
DATE: 03/24/2019 SUBJECTIVE: No complaints. " Still bubbling". OBJECTIVE: Vital Signs: Blood pressure 123/66, heart rate 80, respiration 18, afebrile. General: No acute distress. Skin: Warm and dry. Neck: Neck veins are not distended. Heart: Regular. Lungs: Equal. Abdomen: Soft, nontender. Bowel sounds present. Extremities: Minimal edema. No clubbing or cyanosis. IMPRESSION: 1. Hyperkalemia. Persistent. Yesterday he was eating tomato soup and drinking multiple supplements that were high potassium foods. I have adjusted both of these items. 2. Urinary hesitancy. Garcia catheter is in place. He is taking finasteride and Flomax. 3. Chronic kidney disease stage 4. Stable. cc: Cristian Masterson MD
[2019-03-24] MEDS: NORCO-5 PO PRN ×2 (08:44→20:12)
[2019-03-24] MEDS: PROSCAR PO SCH (08:44)
[2019-03-24] MEDS: COLACE PO SCH ×2 (08:44→20:12)
[2019-03-24] MEDS: CENTRUM SILVER PO SCH (08:45)
[2019-03-24] MEDS: ICAR-C PO SCH ×2 (08:45→20:12)
[2019-03-24] MEDS: FLOMAX PO SCH ×2 (08:45→20:12)
[2019-03-24] MEDS: ZOFRAN IV SCH ×3 (08:46→17:01)
[2019-03-24] MEDS: VELTASSA PO SCH (08:46)
[2019-03-24] MEDS: MBX SOLUTION MT SCH ×3 (08:46→17:00)
[2019-03-24] MEDS: MIRALAX PO SCH ×2 (08:46→20:13)
--- NOTE | 2019-03-24 10:35 | HEMO/ONC PROGRESS NOTE ---
DATE: 03/24/2019 SUBJECTIVE: Patient continues to feel better. Has no new complaints at this time. OBJECTIVE: Vital Signs: Temp 98.2 degrees, heart rate 60, respiratory rate 18, blood pressure 124/68, satting 100% on nasal cannula. General: Patient is awake, lying in bed, no acute distress noted. HEENT: Anicteric. Pupils PERRLA. Mucous membranes dry. Cardiovascular: S1, S2. Regular rate and rhythm. Chest: Bilateral breath sounds clear to auscultation bilaterally. Abdomen: Soft, nontender. Bowel sounds present in all 4 quadrants. Neurologic: Alert and oriented x3. No focal deficits noted. LABORATORY DATA: White blood cell count is 4.32, hemoglobin 7.9, hematocrit 24.4, platelets are 144. Potassium 5.2, BUN 34, creatinine 2.5. ASSESSMENT AND PLAN: 1. Limited stage small-cell lung cancer: Treatment continues to be on hold at this time. Once patient is better, we hopefully can restart it at that time. Continue to monitor. 2. Pneumothorax. The patient seems to have a large leak. Continue orders per primary medical team, Surgery and Pulmonology. 3. Nausea: The nausea is better. Continue to monitor closely. 4. Chronic obstructive pulmonary disease: Continue treatment per primary medical team and Pulmonology. 5. Acute kidney injury on chronic kidney disease: Continue treatment per primary medical team. 6. Anemia: Hemoglobin and hematocrit trending downwards. Today hemoglobin 7.9, hematocrit 24.4. Continue to monitor very closely at this time. 7. Deep venous thrombosis prophylaxis: Continue patient to get out of bed as much as possible. Continue orders per primary medical team. 8. Supportive care: Continue protein shakes. Continue to have patient exercise while in the hospital. Dictated by ISABELLE Horn for Lester Mcnamara MD Patient seen and examined. Nausea and odynophagia is better. His by mouth intake is increasing. Pneumothorax with persistently leak. I will discuss with Dr. Hardy. His other issues seemed to be back to baseline. Patient would like to get him home as soon as possible. Lester Mcnamara M.D. [facility]
[2019-03-24] MEDS: HYDROCORTISONE 2.5% LOTION TOP SCH ×2 (13:56→20:13)
--- NOTE | 2019-03-24 14:20 | PROGRESS NOTE ---
DATE: 03/24/2019 SUBJECTIVE: The patient resting in bed. Not in any obvious distress. OBJECTIVE: Vital signs: Temperature 98.4 degrees, pulse 80, respiratory rate 18, blood pressure 108/58, oxygen saturation is 98%. HEENT: Atraumatic, normocephalic. Cardiovascular System: S1, S2. Respiratory system has evidence of good air entry bilaterally. Abdomen is soft, nontender. No masses felt. Extremities: No evidence of edema. Central Nervous System: No obvious focal deficits noted. LABORATORIES: WBC is 4.32, hematocrit 24.4, with a platelet count of 144,000. Sodium is 138, potassium 5.2, chloride 106, bicarbonate is 22, BUN is 34, creatinine is 2.5. ASSESSMENT AND PLAN: 1. Spontaneous right-sided pneumothorax status post right chest tube. The surgical team following. 2. Hyperkalemia. Continue valsartan. 3. Chronic kidney disease. Nephrology following. 4. Urinary retention. maintain patient on Flomax , Proscar and kaplan cath. 5. Pneumonitis. We will continue antibiotics as well as bronchodilator treatment. 6. Severe esophagitis with dysphagia secondary to radiation treatment. Continue PPI. Gastroenterology following. 7. Small cell lung cancer status post chemoradiation. Oncology following. 8. Diabetes mellitus. Continue blood sugar medications as well as sliding scale insulin. 9. Anemia. Follow up on hemoglobin and hematocrit. Transfuse PRBCs as needed. 10. Deep vein thrombosis prophylaxis. Sequential compression devices. 11. Gastrointestinal prophylaxis. The patient is on PPI. DISPOSITION: The patient will be going home with home health services when ready for discharge. cc: Vikash Garcia MD [facility]
--- NOTE | 2019-03-24 15:02 | PROVIDER PROGRESS NOTE ---
Progress Note SUBJECTIVE: No acute overnight events. No N/V/F, CP, SOB. His odynophagia is improving. No abdominal pain. +BMs OBJECTIVE: Last Vital Signs Temp 98.4 F 03/24/19 11:42 Pulse 80 03/24/19 11:42 Resp 18 03/24/19 11:42 BP 108/58 03/24/19 11:42 Pulse Ox 98 03/24/19 11:42 Height 5 ft 8 in Weight 171 lb 3 oz GEN: awake, alert, NAD HEENT: anicteric, MMM, EOMI NECK: supple, no jvd PULM: CTAB, no wheezing, right chest tube in place CV: RRR, no murmurs ABD: soft NT/ND, NABS EXT: no cce NEURO: nonfocal LABS: 03/24/19 03/24/19 06:40 06:40 WBC 4.32 L Hgb 7.9 L MCV 105.6 H Plt Count 144 Sodium 138 Potassium 5.2 H Chloride 106 Carbon Dioxide 22 L BUN 34 H Creatinine 2.5 H Glucose 139 H Phosphorus 2.5 L Albumin 3.0 L EGD 03/19/2019 POSTOPERATIVE DIAGNOSES: 1. Severe esophagitis in the proximal mid esophagus likely from radiation with contact oozing. Biopsy was not obtained. 2. The Z-line visualized at 40 cm. 3. Evidence of hiatal hernia, sliding type 4 to 5 cm. 4. Evidence of food and bile in the stomach likely suggesting mild gastroparesis. 5. Gastritis of body and antrum, biopsied. 6. Normal fundus, cardia, incisura. 7. Normal duodenal bulb and second portion of the duodenum. A/P: Mr. Rashid is a 78M with HTN, COPD, CKD, CAD, NIDDM2, chronic constipation, and right small-cell lung cancer s/p 3 cycles of chemotherapy (started on carboplatin and etoposide on 01/01/2019; last dose 02/18/2019; on hold secondary to leukopenia and thrombocytopenia) undergoing radiation who was admitted with spontaneous PTX s/p chest tube who presents to the GI service with nausea, vomiting, odynophagia, and dysphagia found to have severe radiation esophagitis who continues to improve with supportive treatment. #Severe esophagitis: continue carafate, magic mouthwash, and PPI PO BID; repeat EGD in 4-6 weeks upon discharge to assess for healing #Gastritis: on PPI #Odynophagia: - advanced patient to GI soft diet today - patient is currently not interested in PEG tube placement should he require further radiation therapy; advised him and to discuss with patients primary oncologist #PTX: chest tube in place; still has leak; surgery following #Hyperkalemia: low K diet; renal following #COPD: aware #CKD: stable #DM2: on SSI #SCLC: chemoradiation on hold as per oncology team #Anemia: hgb 7.9; no overt GI bleeding; 2/2 to chemo +/- esophagitis; transfuse prn for goal hgb 7-8 Will follow with you. Please call with questions
--- NOTE | 2019-03-24 17:49 | GENERAL SURGERY PROGRESS NOTE ---
DATE: 03/24/2019 SUBJECTIVE: Feels overall better. Continues to have some cough. His air leak persists. Chest x- ray looks about the same. White count is 4, hematocrit is 24, creatinine is 2.5. ASSESSMENT AND PLAN: This is a 78-year-old gentleman with lung cancer and also with a spontaneous pneumothorax. He is being treated for pneumonia, acute kidney injury, several other medical exacerbations. Were he get to the point that he had a persistent leak, we could consider some type of Heimlich valve or similar device at home, but this is not an ideal situation. Family understands and was apprehensive to this. I do not think he would tolerate a thorascopic or thoracotomy procedure. cc: Diana Hardy MD
--- NOTE | 2019-03-24 20:57 | PULMONOLOGY PROGRESS NOTE ---
DATE: 03/24/2019 SUBJECTIVE: Patient was sleeping upon arrival. Family was not at the bedside. He continues to have a small air leak. OBJECTIVE: Vital Signs: Blood pressure 130/68, heart rate 74, respiratory rate 18, oxygen saturation 98% on 2 L per nasal cannula. HEENT: Pupils are equal and reactive. Oropharynx is clear. Neck: Supple. Chest: Prolonged expiratory phase. Small amount of air can be heard rushing through the chest tube. Abdomen: Soft. Extremities: Without edema. LABORATORIES: Chest x-ray is unchanged. IMPRESSION: A 78-year-old with: 1. Limited stage small-cell lung cancer. 2. Spontaneous pneumothorax, hospital day 9. 3. Acute hypoxemic respiratory failure. 4. Chronic kidney disease. 5. Esophagitis. 6. Benign prostatic hypertrophy. 7. History of coronary artery disease with bypass grafting. DISCUSSION: A 78-year-old with problems outlined above. The patient continues to have a small air leak. Possible management options as outlined by Dr. Hardy include (1) continued observation; (2) placement of a Heimlich valve; (3) high risk surgery. He would be a difficult surgical candidate. If surgery were decided, end of life discussions would need to be held prior to such a large procedure in the event he could not be weaned off mechanical ventilation, or in the event he had a significant cardiac event. PLAN: 1. Continue current treatment. 2. Consider Heimlich valve. 3. Surgery high risk as noted above. cc: Estuardo Barillas MD
[2019-03-25] MEDS: CARAFATE LIQUID PO SCH ×4 (03:08→21:11)
[2019-03-25] MEDS: XOPENEX NEB INH SCH ×6 (04:02→22:45)
[2019-03-25] MEDS: ATROVENT NEB INH SCH ×6 (04:02→22:44)
[2019-03-25] MEDS: SODIUM CHLORIDE 0.9% INJ SCH (05:09)
[2019-03-25] MEDS: PROTONIX IV SCH ×2 (05:09→17:50)
[2019-03-25] MEDS: ZOSYN 2.25 GM in NS 50 ML IV SCH ×4 (05:09→21:11)
[2019-03-25] MEDS: HUMULIN R SUBQ SCH ×4 (06:08→21:11)
--- NOTE | 2019-03-25 06:36 | Diag Imaging Result Doc PS360 ---
EXAM: CHEST-1 VIEW HISTORY: SOB TECHNIQUE: Chest single view COMPARISON: 03/24/2019 FINDINGS: There is a small right pneumothorax which is actually slightly more prominent than on the prior study. No change in position of the right-sided chest tube. No change in the right jugular portacatheter on the left pacemaker. There are sternal wires and surgical clips. There are increased interstitial markings throughout the lungs. IMPRESSION: Small right pneumothorax appears slightly larger than on the prior study. Electronically signed by Galileo Jackson 03/25/2019 6:34 AM
--- NOTE | 2019-03-25 07:06 | NEPHROLOGY PROGRESS NOTE ---
DATE: 03/25/2019 SUBJECTIVE: He is lying in bed. No new complaints. OBJECTIVE: Vital Signs: Blood pressure 132/66, heart rate 70, respirations 18, afebrile. General: No acute distress. Skin: Warm and dry. HEENT: Conjunctivae are pink. Neck: Neck veins are not distended. Cardiovascular: Heart is regular. Lungs: Equal. No crackles. Abdomen: Soft, nontender. Bowel sounds present. Extremities: No edema, clubbing, or cyanosis. IMPRESSION: 1. Chronic kidney disease stage 4. At baseline. 2. Hyperkalemia. Secondary to chronic kidney disease and diet. I adjusted his diet yesterday. No other changes. cc: Cristian Masterson MD MTDD
[2019-03-25] MEDS: PULMICORT INH SCH ×2 (07:12→19:50)
[2019-03-25 07:42] LABS: CALCIUM 8.6 mg/dL (8.8-10.2); CREATININE 2.6 mg/dL (0.7-1.2); PHOSPHORUS 2.3 mg/dL (2.7-4.5); POTASSIUM 5.3 mmol/L (3.5-5.1)
--- NOTE | 2019-03-25 08:15 | HEMO/ONC PROGRESS NOTE ---
DATE: 03/25/2019 SUBJECTIVE: Patient continues to feel well at this time. Patient requesting to go home. Patient has no new complaints. OBJECTIVE: Vital Signs: Temperature 98.5 degrees, heart rate 70, respiratory rate 18, blood pressure 150/66, saturating 98% on nasal cannula. General: Patient is awake, lying in bed, no acute distress noted. HEENT: Anicteric. Mucous membranes appear to be moist. Cardiovascular: S1, S2. Regular rate and rhythm. Chest: Bilateral breath sounds bilaterally. Abdomen: Soft, nontender. Bowel sounds present all 4 quadrants. Neurologic: Alert and oriented x3. No focal deficits noted. ASSESSMENT AND PLAN: 1. Limited stage small cell lung cancer: Treatment on hold until patient is better. Once patient is better. We can restart treatment at that time. 2. Pneumothorax: Patient continues to have a very small air leak. Continue recommendations per primary medical team, surgeon, Pulmonology. 3. Acute kidney injury on chronic kidney disease: Continue medications by primary medical team and Nephrology. 4. Chronic obstructive pulmonary disease. Continue recommends by primary medical team Pulmonology. 5. Deep venous thrombosis prophylaxis. Continue to get the patient out bed as much as possible. 6. Supportive care. Continue protein shakes. Continue patient to exercise while in the Hospital as instructed. Dictated by ISABELLE Horn for Lester Mcnamara MD Patient seen and examined. He is feeling much better. Pneumothorax with persistent leak. Odynophagia and nausea has resolved. He got out of bed and walking the hallways today. Discussed with Dr. Tuttle, Dr. Cox and Dr. Hardy. Plan for discharge as soon as it is okay with Dr. Hardy. Continue current management. Lester Mcnamara M.D. [facility]
[2019-03-25] MEDS: CENTRUM SILVER PO SCH (08:55)
[2019-03-25] MEDS: MIRALAX PO SCH ×2 (08:55→21:12)
[2019-03-25] MEDS: COLACE PO SCH ×2 (08:55→21:11)
[2019-03-25] MEDS: FLOMAX PO SCH ×2 (08:55→21:11)
[2019-03-25] MEDS: ZOFRAN IV SCH ×3 (08:55→17:25)
[2019-03-25] MEDS: PROSCAR PO SCH (08:56)
[2019-03-25] MEDS: MBX SOLUTION MT SCH ×3 (09:10→17:13)
[2019-03-25] MEDS: ICAR-C PO SCH ×2 (09:12→21:11)
[2019-03-25] MEDS: HYDROCORTISONE 2.5% LOTION TOP SCH ×2 (09:14→21:12)
[2019-03-25] MEDS: VELTASSA PO SCH (09:20)
--- NOTE | 2019-03-25 11:57 | PROVIDER PROGRESS NOTE ---
Progress Note SUBJECTIVE: No acute overnight events. Afebrile. No N/V. He reports persistent productive cough with pleuritic CP. No abdominal pain. Normal bowel movements. Odynophagia is improving. No dysphagia. OBJECTIVE: Last Vital Signs Temp 97.7 F 03/25/19 08:00 Pulse 81 03/25/19 08:00 Resp 15 03/25/19 07:12 BP 106/69 03/25/19 08:00 Pulse Ox 98 03/25/19 08:00 Height 5 ft 8 in Weight 171 lb 3 oz GEN: awake, alert, NAD HEENT: anicteric, MMM, EOMI NECK: supple, no jvd PULM: CTAB, no wheezing, right chest tube in place with air leak CV: RRR, no murmurs ABD: soft NT/ND, NABS EXT: no cce NEURO: nonfocal LABS: 03/25/19 06:20 Sodium 133 L Potassium 5.3 H Chloride 102 Carbon Dioxide 22 L BUN 31 H Creatinine 2.6 H Calcium 8.6 L Phosphorus 2.3 L Albumin 3.0 L EGD 03/19/2019 POSTOPERATIVE DIAGNOSES: 1. Severe esophagitis in the proximal mid esophagus likely from radiation with contact oozing. Biopsy was not obtained. 2. The Z-line visualized at 40 cm. 3. Evidence of hiatal hernia, sliding type 4 to 5 cm. 4. Evidence of food and bile in the stomach likely suggesting mild gastroparesis . 5. Gastritis of body and antrum, biopsied. 6. Normal fundus, cardia, incisura. 7. Normal duodenal bulb and second portion of the duodenum. A/P: Mr. Rashid is a 78M with HTN, COPD, CKD, CAD, NIDDM2, chronic constipation, and right small-cell lung cancer s/p 3 cycles of chemotherapy (started on carboplatin and etoposide on 01/01/2019; last dose 02/18/2019; on hold secondary to leukopenia and thrombocytopenia) undergoing radiation who was admitted with spontaneous PTX s/p chest tube who presents to the GI service with nausea, vomiting, odynophagia, and dysphagia found to have severe radiation esophagitis. His odynophagia continues to improve with supportive care. We discussed high likelihood that he will have recurrence with resuming radiation treatment; however, they are not interested on PEG tube placement. I discussed this with Dr. Mcnamara this morning and he agreed that will not likely need PEG as he only has 2 weeks of radiation therapy to complete. #Severe esophagitis: continue carafate, magic mouthwash, and PPI PO BID; repeat EGD in 4-6 weeks after completion of radiation #Gastritis: on PPI BID #Odynophagia: cont GI soft diet #PTX: chest tube in place; still has leak; surgery following #Hyperkalemia: low K diet; renal following #COPD: aware #CKD: stable #DM2: on SSI #SCLC: chemoradiation as per oncology team #Anemia: hgb 7.9 yesterday; no overt GI bleeding; 2/2 to chemo +/- esophagitis; transfuse prn for goal hgb 7-8 Patient ok to be discharged from GI perspective. Please call with questions
--- NOTE | 2019-03-25 12:47 | PROGRESS NOTE ---
DATE: 03/25/2019 SUBJECTIVE: The patient resting in bed. Has present in the room. OBJECTIVE: Vital signs: Vital signs are as follows: Temperature 97.7, pulse is 81, respiratory rate is 15, blood pressure 106/69, oxygen saturation is 98%. HEENT: Patient is atraumatic, normocephalic. Cardiovascular system: S1, S2. Respiratory system: Has evidence of good air entry bilaterally. Abdomen: Soft, nontender. No masses felt. Extremities: No evidence of edema. Central nervous system: No obvious focal deficits noted. LABS: Labs are as follows: Sodium is 133, potassium 5.3, chloride is 102, bicarbonate 22. BUN 31, creatinine 2.6, glucose is 123. ASSESSMENT AND PLAN: 1. Spontaneous right pneumothorax, status post right chest tube. Surgical team is following. 2. Hyperkalemia. Continue Veltassa. Follow up on potassium level. 3. Chronic kidney disease. Follow up on renal function. Nephrology is following. 4. Urinary tract infection. Maintain patient on Flomax and Proscar, as well as Garcia catheter. Urology following. 5. Pneumonitis. Continue antibiotics, as well as a bronchodilator treatment. 6. Severe esophagitis with dysphagia secondary to radiation treatment. Continue proton pump inhibitor. Gastroenterology following. 7. Small cell lung cancer status post chemoradiation. Oncology following. 8. Diabetes mellitus. Continue blood sugar monitoring, as well as sliding scale insulin. 9. Anemia. Follow up on hemoglobin, hematocrit. Transfuse packed red blood cells as needed. 10. Deep vein thrombosis prophylaxis. Sequential compression devices. 11. Gastrointestinal prophylaxis. Proton pump inhibitor. 12. Disposition: Patient will be going home with Home Health Services when ready for discharge. The patient can be discharged home when cleared by the surgical team. cc: Vikash Garcia MD MTDD
[2019-03-25] MEDS: NORCO-5 PO PRN (21:11)
[2019-03-25] MEDS: MUCINEX PO SCH (21:11)
[2019-03-26] MEDS: CARAFATE LIQUID PO SCH ×4 (02:24→21:28)
[2019-03-26] MEDS: PROTONIX IV SCH ×2 (04:59→17:16)
[2019-03-26] MEDS: ZOSYN 2.25 GM in NS 50 ML IV SCH ×4 (04:59→21:28)
[2019-03-26] MEDS: SODIUM CHLORIDE 0.9% INJ SCH ×2 (04:59→17:16)
[2019-03-26] MEDS: XOPENEX NEB INH SCH ×6 (05:33→23:32)
[2019-03-26] MEDS: ATROVENT NEB INH SCH ×6 (05:33→23:32)
[2019-03-26] MEDS: HUMULIN R SUBQ SCH ×4 (06:00→21:28)
[2019-03-26] MEDS: PULMICORT INH SCH ×2 (07:38→19:55)
[2019-03-26] MEDS: PROSCAR PO SCH (08:58)
[2019-03-26] MEDS: MUCINEX PO SCH ×2 (08:58→21:28)
[2019-03-26] MEDS: ICAR-C PO SCH ×2 (08:58→21:28)
[2019-03-26] MEDS: CENTRUM SILVER PO SCH (08:58)
[2019-03-26] MEDS: MIRALAX PO SCH ×2 (08:58→21:29)
[2019-03-26] MEDS: VELTASSA PO SCH (08:58)
[2019-03-26] MEDS: COLACE PO SCH ×2 (08:58→21:28)
[2019-03-26] MEDS: FLOMAX PO SCH ×2 (08:58→21:28)
[2019-03-26] MEDS: MBX SOLUTION MT SCH ×3 (08:59→16:21)
[2019-03-26] MEDS: HYDROCORTISONE 2.5% LOTION TOP SCH ×2 (08:59→21:29)
[2019-03-26] MEDS: ZOFRAN IV SCH ×3 (09:00→16:20)
[2019-03-26] MEDS: NORCO-5 PO PRN ×2 (09:12→23:16)
--- NOTE | 2019-03-26 12:08 | GASTROENTEROLOGY PROGRESS NOTE ---
DATE: 03/26/2019 SUBJECTIVE: The patient is resting in bed. He is feeling better. Denies any new complaints. He denies any fevers, rigors, or chills. He is swallowing better. He has been moving his bowels; his last bowel movement was yesterday. OBJECTIVE: Vital signs: Temperature of 97.2, pulse rate of 69, respiratory rate of 12, blood pressure 116/75, satting 97% on room air. Body weight of 171 pounds 3 ounces. BMI 26 kg/m2. General: This is a moderately well built, moderately nourished man, lying in bed in no acute distress. HEENT: Pale conjunctivae. No icterus. Neck: Supple. Abdomen: Protuberant, soft, nontender, nondistended. No guarding or rebound. Extremities: No cyanosis, clubbing. Neurologic: Neuro-gunderson, he is alert, awake, oriented. LABS: No labs were drawn today. Blood glucose of 147. IMPRESSION AND PLAN: 1. Odynophagia/dysphagia is improving. Will continue with Carafate, Magic mouthwash and proton pump inhibitors oral twice daily. We will repeat esophagogastroduodenoscopy in 4 to 6 weeks after completion of radiation. At that time, we will decide about possible esophageal dilation. 2. Gastritis. Proton pump inhibitors twice daily. 3. Odynophagia. Continue with gastrointestinal soft diet. 4. Spontaneous pneumothorax. Chest tube is in place. Surgery is following. 5. Chronic obstructive pulmonary disease. Aware. 6. Chronic kidney disease, stable. 7. Diabetes type 2 on sliding-scale insulin. 8. Small cell lung cancer. He is receiving chemo/radiation per Dr. Mcnamara. 9. Anemia is getting slightly worse. He may need blood transfusion and that will be at the discretion of the primary care team. 10. Chronic constipation. We will continue on Colace twice daily and MiraLAX twice daily. 11. We will continue Iron C twice daily and multivitamin once daily for anemia. 12. He is on antibiotics per Dr. Barillas. The above plans mentioned with the patient and family. All questions were answered. Please call us with any further issues. cc: MD Lester Oliva MD
--- NOTE | 2019-03-26 15:19 | PROGRESS NOTE ---
DATE: 03/26/2019 SUBJECTIVE: Patient resting in bed. The patient's present in the room. OBJECTIVE: Vital Signs: Temperature 97.7 degrees, pulse 79, respiratory rate 16, blood pressure is 115/64, O2 saturation is 96%. HEENT: Atraumatic, normocephalic. Cardiovascular System: S1, S2. Respiratory system has evidence of good air entry bilaterally. Abdomen is soft, nontender. No masses felt. Extremities: No evidence of edema. Central Nervous System: No obvious focal deficit noted. LABORATORIES: WBCs 4.32. Blood sugar 172. ASSESSMENT AND PLAN: 1. Spontaneous right pneumothorax status post right chest tube. Surgical team is following. 2. Hyperkalemia. Continue Veltassa. Follow up on potassium level. 3. Chronic kidney disease. Follow up on renal function. Nephrology is following. 4. Urinary retention. Maintain patient on Flomax as well as Proscar. Continue Garcia catheter. Urology is following. 5. Pneumonitis. Continue antibiotics as well as bronchodilator treatment. 6. Severe esophagitis with dysphagia secondary to radiation treatment. Continue PPI. Gastroenterology following. 7. Small cell lung cancer. Status post chemoradiation. Oncology following. 8. Diabetes mellitus. Continue blood sugar monitoring as well as sliding scale insulin. 9. Anemia. Follow up on hemoglobin and hematocrit, transfuse packed red blood cells if needed. 10. Deep vein thrombosis prophylaxis. Sequential compression devices. 11. Gastrointestinal prophylaxis. Proton pump inhibitor. DISPOSITION: The patient will be going home with home health services when ready for discharge. The patient can be discharged home when cleared by the surgical team. The patient may possibly be going home tomorrow . cc: Vikash Garcia MD
--- NOTE | 2019-03-26 15:38 | NEPHROLOGY PROGRESS NOTE ---
DATE: 03/26/2019 SUBJECTIVE: He may be going home today. No obvious air leak this morning. No nausea, vomiting, shortness of breath. OBJECTIVE: Vital Signs: Blood pressure 115/64, heart rate 79, respirations 16, afebrile. General: No acute distress. Skin: Warm and dry. HEENT: Conjunctivae are pink. Neck: Neck veins are not distended. Heart: Regular. No gallops. Lungs: Equal. No crackles. Abdomen: Soft, nontender. Bowel sounds present. Extremities: No edema, clubbing, or cyanosis. IMPRESSIONS: 1. Hyperkalemia. Potassium is stable at 5.3 on Veltassa. I would simply send him home on his current dose and he can see us in the office to develop an ongoing plan. 2. Chronic kidney disease stage 4. At baseline. 3. Acid base. In target. cc: Cristian Masterson MD
[2019-03-26 16:19] LABS: ALB/GLOB RATIO 1.1; ALBUMIN 3.2 g/dL (3.5-5.0); CALCIUM 9.4 mg/dL (8.8-10.2); CREATININE 2.6 mg/dL (0.7-1.2); POTASSIUM 5.3 mmol/L (3.5-5.1); TOTAL BILIRUBIN 0.19 mg/dL (0.20-1.00); TOTAL PROTEIN 6.1 g/dL (6.3-8.3)
--- NOTE | 2019-03-26 19:26 | GENERAL SURGERY PROGRESS NOTE ---
DATE: 03/26/2019 SUBJECTIVE: He is overall doing about the same clinically. He did not have an x-ray today, but his one yesterday showed slight increase in the pneumothorax. He continues to have an air leak. OBJECTIVE: I reviewed his vital signs and his labs. On exam, the patient has a chest tube to water seal and has been for several days. ASSESSMENT AND PLAN: A 78-year-old gentleman with lung cancer, admitted with pneumonia, acute kidney injury, and spontaneous right pneumothorax, likely related to a ruptured bleb. The medicine folks feel as though he is ready to go home. We will plan to repeat an x-ray in the morning, and I will repeat his chest x-ray and place a Heimlich valve and plan to have him go home with this. I have discussed pros and cons with the family. He also has a Garcia catheter. Otherwise, if he remains inpatient, we will keep him on a Pleur-Evac. cc: Diana Hardy MD
--- NOTE | 2019-03-26 22:07 | PULMONOLOGY PROGRESS NOTE ---
DATE: 03/26/2019 SUBJECTIVE: The patient is awake, alert and conversant. He has been ambulating. He reports he may get to go home tomorrow. OBJECTIVE: Blood pressure 113/62, heart rate 77, respiratory rate 14, oxygen saturation 95% on room air. HEENT: Pupils are equal and reactive. Oropharynx is clear. Neck is supple. Chest reveals good air entry bilaterally. No wheezing or rhonchi. No air leak was seen with initial observation. He did cough 2 or 3 times without overt air leak; however, when he did turn in the bed he did have several bubbles come through his Pleur-Evac. Cardiac exam: S1, S2. Abdomen is soft. Extremities without edema. IMPRESSION: A 78-year-old with: 1. Limited stage small-cell cancer. 2. Spontaneous pneumothorax, hospital day 11. 3. Acute hypoxemic respiratory failure. 4. Chronic kidney disease. 5. Esophagitis. 6. Benign prostatic hypertrophy. DISCUSSION: A 78-year-old with problems as outlined above. He continues to have a small intermittent air leak. He is a difficult surgical candidate with a high risk for morbidity and/or mortality with a surgical procedure. Agree with Dr. Hardy's plan to review x-ray tomorrow and transition him to a Heimlich valve so he could be discharged home. RECOMMENDATIONS: 1. Continue current treatment. 2. Agree with plans for Heimlich valve as outlined per Dr. Hardy. cc: Estuardo Barillas MD
[2019-03-27] MEDS: CARAFATE LIQUID PO SCH ×2 (02:04→09:55)
[2019-03-27] MEDS: ATROVENT NEB INH SCH ×3 (02:57→10:42)
[2019-03-27] MEDS: XOPENEX NEB INH SCH ×3 (02:58→10:42)
[2019-03-27] MEDS: ZOSYN 2.25 GM in NS 50 ML IV SCH ×2 (03:52→09:55)
[2019-03-27] MEDS: PROTONIX IV SCH (06:23)
[2019-03-27] MEDS: HUMULIN R SUBQ SCH ×2 (06:23→11:13)
[2019-03-27 07:32] LABS: BASO# 0.04 X1000 (0.0-0.2); BASO% 0.6 % (0.0-0.8); EOS# 0.88 X1000 (0.0-0.7); EOS% 13.9 % (0.0-10.0); HEMATOCRIT 26.3 % (42.0-52.0); HEMOGLOBIN 8.7 g/dL (14.0-18.0); IMM GRAN# 0.31 X1000 (0.0-0.04); IMM GRAN% 4.9 % (0.0-0.5); LYMPH# 1.24 X1000 (1.2-3.4); LYMPH% 19.6 % (20.5-51.1); MCH 33.9 PG (27-31); MCHC 33.1 g/dL (33-37); MCV 102.3 FL (81-99); MONO# 0.91 X1000 (0.11-0.59); MONO% 14.4 % (1.7-9.3); MPV 10.2 FL (7.4-10.4); NEUT# 2.94 X1000 (1.4-6.5); NEUT% 46.6 % (42.2-75.2); PLT 143 X1000 (130-400); RBC 2.57 XMIL (4.7-6.1); RDW 16.2 % (11.5-14.5); WBC 6.32 X1000 (4.8-10.8)
--- NOTE | 2019-03-27 08:55 | PROVIDER PROGRESS NOTE ---
Progress Note SUBJECTIVE: No acute overnight events. No N/V/F, SOB, CP, abdominal pain. He is tolerating diet. His odynophagia is improving. BMs present OBJECTIVE: Last Vital Signs Temp 97.8 F 03/27/19 07:56 Pulse 83 03/27/19 07:56 Resp 18 03/27/19 07:56 BP 118/64 03/27/19 07:56 Pulse Ox 94 L 03/27/19 07:56 Height 5 ft 8 in Weight 171 lb 3 oz GEN: awake, alert, NAD HEENT: anicteric, MMM, EOMI NECK: supple, no jvd PULM: CTAB, no wheezing, right chest tube in place with air leak CV: RRR, no murmurs ABD: soft NT/ND, NABS EXT: no cce NEURO: nonfocal LABS: 03/27/19 03/27/19 05:52 06:46 WBC 6.32 Hgb 8.7 L Plt Count 143 POC Glucose 192 H EGD 03/19/2019 POSTOPERATIVE DIAGNOSES: 1. Severe esophagitis in the proximal mid esophagus likely from radiation with contact oozing. Biopsy was not obtained. 2. The Z-line visualized at 40 cm. 3. Evidence of hiatal hernia, sliding type 4 to 5 cm. 4. Evidence of food and bile in the stomach likely suggesting mild gastroparesis. 5. Gastritis of body and antrum, biopsied. 6. Normal fundus, cardia, incisura. 7. Normal duodenal bulb and second portion of the duodenum. A/P: Mr. Rashid is a 78M with HTN, COPD, CKD, CAD, NIDDM2, chronic constipation, and right small-cell lung cancer s/p 3 cycles of chemotherapy (started on carboplatin and etoposide on 01/01/2019; last dose 02/18/2019; on hold secondary to leukopenia and thrombocytopenia) undergoing radiation who was admitted with spontaneous PTX s/p chest tube who presents to the GI service with nausea, vomiting, odynophagia, and dysphagia found to have severe radiation esophagitis. His odynophagia continues to improve with supportive care. #Severe esophagitis: continue carafate, magic mouthwash, and PPI PO BID; repeat EGD in 4-6 weeks after completion of radiation #Gastritis: on PPI BID #Odynophagia: cont GI soft diet #PTX: chest tube in place; surgery following #Hyperkalemia: low K diet; renal following #COPD: aware #CKD: stable #DM2: on SSI #SCLC: chemoradiation as per oncology team #Anemia: hgb 8.7 yesterday; no overt GI bleeding Patient is being discharged today. Follow-up with me in 2 weeks from discharge. Please call with questions.
[2019-03-27 09:05] LABS: BANDS 2 % (0-1); EOS 4 % (1-10); LYMPHS 20 % (21-51); MONO 16 % (1-9); SEGS 58 % (42-75)
[2019-03-27] MEDS: COLACE PO SCH (09:55)
[2019-03-27] MEDS: FLOMAX PO SCH (09:55)
[2019-03-27] MEDS: VELTASSA PO SCH (09:55)
[2019-03-27] MEDS: ZOFRAN IV SCH (09:55)
[2019-03-27] MEDS: MUCINEX PO SCH (09:55)
[2019-03-27] MEDS: MIRALAX PO SCH (09:55)
[2019-03-27] MEDS: CENTRUM SILVER PO SCH (09:55)
[2019-03-27] MEDS: ICAR-C PO SCH (09:56)
[2019-03-27] MEDS: PROSCAR PO SCH (09:56)
[2019-03-27] MEDS: HYDROCORTISONE 2.5% LOTION TOP SCH (09:56)
[2019-03-27] MEDS: MBX SOLUTION MT SCH (09:56)
[2019-03-27] MEDS: NORCO-5 PO PRN (10:02)
--- NOTE | 2019-03-27 10:32 | HEMO/ONC PROGRESS NOTE ---
DATE: 03/27/2019 SUBJECTIVE: The patient continues to feel well at this time. The patient says he is ready to go home. The patient is hoping to go home later today. OBJECTIVE: Vital signs: Temperature 97.8 degrees, heart rate 83, respiratory rate 18, blood pressure 160/64, saturation 94% on room air. General: The patient is awake, lying in bed, no acute distress noted. HEENT: Anicteric. Pupils reactive. Mucous membranes moist. Cardiovascular: S1, S2. Regular rate and rhythm. Chest: Bilateral breath sounds clear to auscultation. Chest tube in place. Abdomen: Soft, nontender. Bowel sounds present all 4 quadrants. Neurologic: Alert and oriented x3. No focal deficits noted. LABORATORY DATA: White blood cell count 6.32, hemoglobin 8.7, hematocrit 26.3, platelets are 143,000. ASSESSMENT AND PLAN: 1. Limited stage small-cell lung cancer: Treatment is going to be on hold until the patient improves. Once he improves, we can restart treatment at that time. 2. Pneumothorax: The patient again has a air leak. The patient is going for heimlich valve by Dr. Hardy and then hopefully be discharged afterwards. Continue management per Surgery. 3. Chronic kidney disease: Continue management per primary team and Nephrology. 4. Esophagitis with dysphagia: Continue proton pump inhibitors. Continues recommendations by primary medical team and Gastroenterology. 5. Deep venous thrombosis prophylaxis: Continue the sequential compression devices. Continue to have the patient get up as much as possible. Dictated by ISABELLE Horn for Lester Mcnamara MD Patient seen and examined. Dr. Hardy has changes chest tube to a Heimlich valve with preparations for discharge. Patient is feeling quite well. He has a urinary catheter which will be managed by Dr. Cox. Gunnar for discharge from my standpoint. He will call Dr. Mayfield office Saturday and plan further management with radiation per her guidance. Recheck in my office soon after. Lester Mcnamara M.D. MTDD
[2019-03-27] MEDS: PULMICORT INH SCH (10:42)
--- NOTE | 2019-03-27 11:02 | PROGRESS NOTE ---
DATE: 03/27/2019 SUBJECTIVE: Patient resting in bed. OBJECTIVE: Vital signs: Temperature 97.8 degrees, pulse 83, respirations 18, blood pressure 118/64, and oxygen saturation is 94%. HEENT: Atraumatic, normocephalic. Cardiovascular: S1, S2. Respiratory: There is evidence of good air entry bilaterally. Abdomen: Soft, nontender. No masses felt. Extremities: No evidence of edema. Central nervous system: No obvious focal deficit noted. LABORATORY: WBC 6.32, hematocrit 36.3 with a platelet count of 143,000. Blood sugar is 192. ASSESSMENT: 1. Spontaneous right pneumothorax status post right chest tube. 2. Hyperkalemia. 3. Chronic kidney disease. 4. Urinary retention. Garcia catheter. 5. Pneumonitis. 6. Severe esophagitis with dysphagia secondary to radiation treatment. 7. Small cell lung cancer. 8. Diabetes mellitus. 9. Anemia. PLAN: The patient can be discharged home today with home health services. He has a right portable chest tube. He will also be going home with Garcia catheter. The patient will need to follow up with Dr. Mcnamara for small cell lung cancer, Dr. Cox for urinary retention, and for removal of the Garcia catheter, and also Dr. Hardy for the portable right chest tube. cc: Vikash Garcia MD
[2019-03-27 12:06] VITALS: BP 128/71
--- NOTE | 2019-03-27 12:50 | NEPHROLOGY PROGRESS NOTE ---
DATE: 03/27/2019 SUBJECTIVE: No new complaints. He still has an air leak. He is anticipating possible discharge today. No shortness of breath, nausea, or vomiting. OBJECTIVE: Vital Signs: Blood pressure 118/64, heart rate 83, respiration 18, afebrile. General: Acute distress. Skin: Warm and dry. He is lying flat. Neck: Neck veins are not distended. Heart: Regular without gallops. Lungs: Equal. Abdomen: Soft and nontender. Bowel sounds present. Extremities: No edema, clubbing or cyanosis. IMPRESSION AND PLAN: 1. Hyperkalemia. Laboratories are pending for today. Again, continue Veltassa at discharge and we will address it as an outpatient. 2. Chronic kidney disease stage 4. At baseline. 3. Euvolemic. 4. Blood pressure in target. cc: Cristian Masterson MD
--- NOTE | 2019-03-27 13:08 | Diag Imaging Result Doc PS360 ---
EXAM: CHEST-2 VIEWS - 03/27/2019 HISTORY: ptx TECHNIQUE: Chest two views COMPARISON: 03/25/2019 FINDINGS: The right chest tube is been withdrawn mildly compared the prior exam. The tip of the chest tube is located at the lateral right upper chest. There is a small pneumothorax at the right apex. This has decreased in size compared to prior. There are COPD/emphysematous changes similar to prior. There are bilateral interstitial opacities which appear to decreased. Heart size is normal. There is transvenous cardiac pacemaker again seen. Central venous catheter remains in place. IMPRESSION: Small right apical pneumothorax, which has decreased compared to prior. Electronically signed by Stephon Guzman 03/27/2019 1:05 PM
--- NOTE | 2019-03-27 15:42 | GENERAL SURGERY PROGRESS NOTE ---
DATE: 03/27/2019 SUBJECTIVE: Doing well. He has not had chest x-ray yet. I switched him to a Heimlich valve. He is seen hemodynamically stable. Has persistent air leak. We will get a chest x-ray at noon. If this looks okay, allow him to go home. See me in a week. cc: Diana Hardy MD
--- NOTE | 2019-03-30 10:11 | DISCHARGE SUMMARY ---
ADMISSION DATE: 03/15/2019 DISCHARGE DATE: 03/27/2019 PRINCIPAL DIAGNOSES: 1. Right pneumothorax status post right chest tube placement. 2. Hyperkalemia. 3. Chronic kidney disease. 4. Urinary retention. 5. Pneumonitis. 6. Severe esophagitis with dysphagia secondary to radiation treatment. 7. Small cell lung cancer. 8. Diabetes mellitus. 9. Anemia. 10. Benign prostatic hypertrophy. DISCHARGE MEDICATIONS: Include the followin. Veltassa 8.4 mg p.o. daily. 2. Advair 250/50 one puff twice a day. 3. Finasteride 5 mg p.o. daily. 4. Flomax 0.4 mg p.o. daily. 5. Combivent Respimat 1 puff 4 times a day. 6. Sodium bicarbonate 650 mg p.o. 3 times a day. 7. Allopurinol 100 mg p.o. daily. 8. Centrum Silver 1 p.o. daily. 9. Docusate Sodium 100 mg p.o. as directed. 10. Zinc sulfate 220 mg p.o. twice a day. 11. Phenergan 25 mg orally as needed. 12. Zofran 4 mg p.o. as needed. 13. Reglan 10 mg to be taken as needed. 14. Glimepiride 1 mg p.o. daily. 15. Lidocaine/prilocaine topical as needed. 16. Cholecalciferol 2000 units p.o. daily. 17. Vitamin B complex 150 mg p.o. daily. PROCEDURES DONE DURING THIS HOSPITAL STAY: Include the followin. Chest CT done on 03/15/2019. 2. Upper GI endoscopy done on 03/19/2019. CONSULTATIONS DONE DURING THIS HOSPITAL STAY: 1. Dr. Lester Mcnamara. Hematology/Oncology. 2. Dr. Jr Wallace, Gastroenterology. 3. Dr. Arleth Infante MD, Pulmonology 4. Dr. Cristian Masterson, Nephrology. HOSPITAL COURSE: Ms. Kvng Rashid is a 72 year old male who was admitted on 03/07/2019 after he was noted to have a spontaneous right pneumothorax. The patient did have a right chest tube put in place. He does have a history of limited stage small cell lung cancer, and was evaluated by the oncology team. He was seen by the GI team because of odynophagia as well as dysphagia. He had upper GI endoscopic study done which showed evidence of severe esophagitis in the proximal mid esophagus likely from radiation. PPI was recommended. He did have a Garcia catheter put in place because of urinary retention. Patient does have a history of benign prostatic hypertrophy. He was maintained on Proscar as well as Flomax. 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 The patient was also seen by the pulmonary team during the course of the hospital stay. Prior to discharge from the hospital, patient had his right chest tube changed to a portable unit. The surgical team felt comfortable with discharging the patient with this portable right chest tube. We did contact the Urology team, Dr. Cox was okay with the patient going home with Garcia catheter, but he wants the patient to follow up with him in the outpatient. PHYSICAL EXAMINATION: Vital Signs: During my examination on 03/27/2019, vital signs are as follows. Temperature 97.8 degrees, pulse 82, respirations 18, and blood pressure 118/64 with oxygen saturation is 94%. HEENT: Atraumatic, normocephalic. Cardiovascular: S1, S2. Respiratory: There is evidence of good air entry bilaterally. Abdomen: Soft and nontender. No masses felt. Extremities: No evidence of edema. Central nervous system: No obvious focal deficit noted. LABORATORY: WBCs 6.32, hematocrit 36.3 with a platelet count of 143,000. Blood sugar 192. PLAN: The patient to be discharged with home health services. He does have a right portable chest tube. Will follow up with in the outpatient for that. The patient will also need to follow up with Dr. Cox for removal of Garcia catheter, and Dr. Mcnamara with regards to his small cell lung cancer. cc: Vikash Garcia MD [facility]
== END 2019-03-27 16:59 | disposition home health service (06) | DRG 190 ==
LOC: P.ED 23:52 → SUATTDRO 03-15 04:58 → 3N 03-15 04:58
PROVIDERS: ATTEND Internal Medicine
CPT/HCPCS: 71010; 71020; 71045; 71046; 71250; 74000; 74018; 76770; 80048; 80053; 80061; 80069; 81001; 82550; 82570; 82607; 82746; 82805; 82948; 83036; 83690; 83721; 83735; 83880; 83935; 84132; 84133; 84156; 84300; 84439; 84443; 84484; 84540; 85025; 85027; 85610; 85730; 87088; 87205; 88305; 88312; 93005; 93010; 94640; 94760; 94761; 94799; 96374; 97162; 97165; 97530; 97535; 99285; 99291; A9270; C9113; J0610; J1940; J2270; J2370; J2405; J2543; J2550; J3010; J7030; S0138; S0164; XXXXX